=== PATIENT | female | born 1955 | race Caucasian/White ===

== ENCOUNTER → 2018-07-07 | Outpatient (CLI) | payer MEDICARE ==
--- NOTE | 2018-07-07 11:13 | US ---
EXAMINATION TYPE: US carotid duplex BILAT DATE OF EXAM: 07/07/2018 COMPARISON: NONE CLINICAL HISTORY: R07.89 Atypical chest pain,R55.9 Near syncope,. EXAM MEASUREMENTS: RIGHT: Peak Systolic Velocity (PSV) cm/sec ----- Right CCA: 81.6 ----- Right ICA: 93.0 ----- Right ECA: 72.8 ICA/CCA ratio: 1.1 RIGHT: End Diastole cm/sec ----- Right CCA: 22.2 ----- Right ICA: 39.1 ----- Right ECA: 10.9 LEFT: Peak Systolic Velocity (PSV) cm/sec ----- Left CCA: 102.0 ----- Left ICA: 80.0 ----- Left ECA: 76.7 ICA/CCA ratio: 0.8 LEFT: End Diastole cm/sec ----- Left CCA: 28.2 ----- Left ICA: 28.2 ----- Left ECA: 9.5 VERTEBRALS (direction of flow): Right Vertebral: Antegrade Left Vertebral: Antegrade Rhythm: Normal Grayscale images show no significant focal plaque at carotid bulb level bilaterally. Velocity measure ments and ratios remain within normal limits in visualized portion of both internal carotid arteries. IMPRESSION: No hemodynamically significant stenosis is seen in either internal carotid artery. Criteria for Assigning % of Stenosis / Diameter reduction (Estimation based on the indirect measurements of the internal carotid artery velocities (ICA PSV). 1. Normal (no stenosis)=ICA PSV < 125 cm/s: ratio < 2.0: ICA EDV<40 cm/s. 2. Less than 50% stenosis=ICA PSV < 125 cm/s: ratio < 2.0: ICA EDV<40 cm/s. 3. 50 to 69% stenosis=ICA PSV of 125 to 230 cm/s: ration 2.0 ? 4.0: ICA EDV 40-100 cm/s. 4. Greater than 70% stenosis to near occlusion= ICA PSV > 230 cm/s: ratio > 4.0: ICA EDV > 100 cm/s. 5. Near occlusion= ICA PSV velocities may be low or undetectable: variable ratio and ICA EDV. 6. Total occlusion=unable to detect flow.
--- NOTE | 2018-07-07 15:46 | BD ---
EXAMINATION TYPE: Axial Bone Density DATE OF EXAM: 07/07/2018 CLINICAL HISTORY: Postmenopausal female Height: 63 Weight: 227 FRAX RISK QUESTIONS: Alcohol (3 or more units per day): no Family History (Parent hip fracture): no Glucocorticoids (More than 3mos): no (Ex: prednisone, prednisolone, methylprednisolone, dexamethasone, and hydrocortisone). History of Fracture in Adulthood: yes, lower leg Secondary Osteoporosis: 1. Type 1 Diabetes: no 2. Hyperthyroidism: no 3. Menopause before 45: yes 4. Malnutrition: no 5. Chronic liver disease: no Rheumatoid Arthritis: no Current Tobacco Use: no RISK FACTORS HISTORY OF: Surgery to Spine: yes, lumbar fusion When: about 2012 Family History of Osteoporosis: no Active: yes Diet low in dairy products/other sources of calcium: no Postmenopausal woman: yes Take estrogen and/or progesterone medications: no Lost more than 2 inches in height since high school: no Frequent falls: no Poor Health: no Hyperparathyroidism: no Adrenal Insufficiency: no MEDICATIONS: Thyroid Medications: yes Which medication: Levothyroxine How Long: about 15 years Osteoporosis Medications: no Additional Medications: blood pressure med, calcium (stopped about 3 weeks ago) Additional History: EXAM MEASUREMENTS: Bone mineral densitometry was performed using the [employer] System. Bone mineral density NOT measured about the Lumbar spine due to previous fusion in that area Bone mineral density about the R hip (g/cm2): 0.880 Bone mineral density about the L hip (g/cm2): 0.809 T Score values are as follows: -----R Neck: -1.1 -----L Neck: -1.6 -----R Total: -0.9 -----L Total: -0.5 Bone mineral density not previously done at this facility; previously done elsewhere some years ago Bone mineral density about the L Wrist (g/cm2): 0.613 T Score values are as follows: -----Dist. R+U: -1.9 -----Prox. R+U: -0.8 -----Radius total: -1.0 Bone mineral density not previously done at this facility; previously done elsewhere some years ago IMPRESSION: Osteopenia (T Score between -2.5 and -1). There is slightly increased risk of fracture and the patient may be considered for treatment. Re-Screen 2-5 years. NOTE: T-SCORE=SD OF THE YOUNG ADULT MEAN.
--- NOTE | 2018-07-08 11:05 | EST ---
EXERCISE STRESS DATE OF SERVICE: 07/07/2018 AGE: 63 SEX: Female HT: 5'3" WT: 228 PROTOCOL: Servando STAGE: I DURATION OF EXERCISE: 3 minutes 20 seconds HEART RATE REST: 91 BLOOD PRESSURE REST: 126/84 MAXIMUM HEART RATE ACHIEVED: 135 MAXIMUM BLOOD PRESSURE: 166/71 85% MPHR: 132 100% MPHR: 153 METS: 4.2 INDICATIONS: Chest pain. Baseline EKG revealed a normal sinus rhythm without significant ST-T changes. Patient walked for 3 minutes 20 seconds, achieved a maximal heart rate of 135 beats per minute which is more than 85% of predicted maximal. She developed fatigue and shortness of breath, but did not have any angina or arrhythmia. EKG did not reveal any clear-cut ST- segment changes to indicate ischemia. Baseline EKG had minor ST abnormality to begin with and with exercise there was no significant changes. This is a negative stress test by EKG criteria with limited exercise capacity. The nuclear scan results which are more pertinent, will be reported by the radiologist. MMMEEK / BENN: [id number] /
== END | disposition home or self-care (01) ==
LOC: RADBDWWP 09:03
PROVIDERS: ATTEND Family Medicine
DX: R07.89 Other chest pain (principal); R55 Syncope and collapse; M85.80 Other specified disorders of bone density and structure, unspecified site; Z78.0 Asymptomatic menopausal state
CPT/HCPCS: 77080; 93017; 93351; 93880

== ENCOUNTER → 2019-12-31 | Outpatient (CLI) | payer MEDICARE | END | disposition home or self-care (01) | LOC: LABWHC1 08:11 | PROVIDERS: ATTEND Family Medicine | DX: R05 Cough (principal) ==

== ENCOUNTER 2020-02-07 15:44 | Emergency (ER) | payer MEDICARE ==
--- NOTE | 2020-02-07 16:46 | US ---
EXAMINATION TYPE: US venous doppler duplex LE RT DATE OF EXAM: 02/07/2020 4:26 PM COMPARISON: NONE CLINICAL HISTORY: fall. no fall, patient went to stand up and felt a pop, bruising and mild swelling in right calf, no h/o dvt SIDE PERFORMED: Right TECHNIQUE: The lower extremity deep venous system is examined utilizing real time linear array sonog rory with graded compression, doppler sonography and color-flow sonography. VESSELS IMAGED: External Iliac Vein (EIV) Common Femoral Vein Deep Femoral Vein Greater Saphenous Vein * Femoral Vein Popliteal Vein Small Saphenous Vein * Proximal Calf Veins (* superficial vessels) Right Leg: Negative for DVTsoft tissue scan at bruising on right calf produced a fluid collection seen near muscle, related to some sort of tear or strain IMPRESSION: No evidence of deep vein thrombosis in the right leg. Elongated fluid collection in the m edial calf consistent with hematoma that measures 6 mm in thickness and 5 cm in length.
--- NOTE | 2020-02-07 16:54 | ED ---
Extremity Problem HPI - General Chief complaint: Extremity Problem,Nontraumatic Stated complaint: rt calf pain/bruising Time Seen by Provider: 02/07/20 15:57 Source: patient Mode of arrival: ambulatory Limitations: no limitations - History of Present Illness Initial comments: 64-year-old feel presenting today for chief complaint of right calf pain. Sabrina ent states she has some tenderness mid calf she states she went up to go stretch and she felt a pop. Patient states that she noticed a lump at that time. Patient sates that since she has noticed bruising that seems to be slightly expanding and now heading towards her ankle. Patient that she is able to ambulate and weight-bear. Patient denies any falls or direct trauma. Patient denies any history of blood clots states she takes a baby aspirin daily. She does admit to Swelling. Patient denies any chest pain shortness of breath. Patient is no additional complaints she appears well arrival in no acute distress. Denies any bleeding diathesis - Related Data Home Medications Medication Instructions Recorded Confirmed Acetaminophen-Codeine 300-30mg 1 tab PO Q8H PRN 06/07/17 06/17/17 [Tylenol #3] Aspirin [Adult Low Dose Aspirin EC] 81 mg PO DAILY 06/07/17 06/07/17 Calcium Carbonate [Calcium] 1,200 mg PO DAILY 06/07/17 06/07/17 Cranberry Fruit Extract [Cranberry] 500 mg PO DAILY 06/07/17 06/07/17 Cyanocobalamin (Vitamin B-12) 1,500 mcg PO DAILY 06/07/17 06/07/17 [Vitamin B-12] Hydrochlorothiazide 12.5 mg PO DAILY 06/07/17 06/17/17 [hydroCHLOROthiazide] Levothyroxine Sodium 100 mcg PO DAILY 06/07/17 06/17/17 Losartan Potassium 50 mg PO DAILY 06/07/17 06/17/17 Magnesium Gluconate [Magonate] 500 mg PO DAILY 06/07/17 06/17/17 Multivit-Min/Iron/Folic/Lutein 1 tab PO DAILY 06/07/17 06/07/17 [Centrum Silver Women Tablet] Omeprazole 20 mg PO DAILY 06/07/17 06/17/17 Vitamin C/Biotin [Hair, Skin and 1 each PO DAILY 06/07/17 06/07/17 Nails] Allergies Allergy/AdvReac Type Severity Reaction Status Date / Time No Known Allergies Allergy Verified 02/07/20 15:53 Review of Systems ROS Statement: Those systems with pertinent positive or pertinent negative responses have been documented in the HPI. ROS Other: All systems not noted in ROS Statement are negative. Past Medical History Past Medical History: GERD/Reflux, Hypertension, Thyroid Disorder History of Any Multi-Drug Resistant Organisms: None Reported Past Surgical History: Section, Hysterectomy, Orthopedic Surgery, Tonsillectomy Additional Past Surgical History / Comment(s): x2, d&c, back surgery Past Anesthesia/Blood Transfusion Reactions: Postoperative Nausea & Vomiting (PONV) Past Psychological History: No Psychological Hx Reported Smoking Status: Never smoker Past Alcohol Use History: Rare Past Drug Use History: None Reported - Past Family History Mother Family Medical History: Cancer Additional Family Medical History / Comment(s): lymphoma Father Family Medical History: Cancer Additional Family Medical History / Comment(s): ling cancer General Exam - General Exam Comments Initial Comments: General: The patient is awake and alert, in no distress Eye: Pupils are equal, round and reactive to light, extra-ocular movements are intact. No nystagmus. There is normal conjunctiva bilaterally. No signs of icterus. Ears, nose, mouth and throat: There are moist mucous membranes and no oral lesions. Gastrointestinal: Soft, non-distended, non-tender abdomen without masses or organomegaly noted. There is no rebound or guarding present. Musculoskeletal: Rigth calf swelling, posterior brusiing, some tendenress. Normal ROM, no tenderness knee ankle and feett b/l. Strength 5/5. Sensation intact. Radial and DP pulses equal bilaterally 2+. Neurological: A&O x 3. CN II-XII intact grossly, There are no obvious motor or sensory deficits. Coordination appears grossly intact. Speech is normal. Skin: Skin is warm and dry and no rashes or lesions are noted. Psychiatric: Cooperative, appropriate mood & affect, normal judgment. Limitations: no limitations Course Vital Signs 02/07/20 02/07/20 15:53 17:09 Temperature 98.5 F 97.9 F Pulse Rate 87 68 Respiratory 16 18 Rate Blood Pressure 123/79 146/82 O2 Sat by Pulse 98 98 Oximetry Medical Decision Making - Medical Decision Making 64yo female presenting for calf pain, right. Bruising, felt pop. this occurred 2 night prior. US reveals hematoma suspect strain, no DVT. No thinners. Patient appear well nontoxic. NO distress or other complaints. Discussed rice instruction and importance of PCP and orthopedic f/u. Patient discharged appearing well. Disposition Clinical Impression: Strain of calf muscle, Hematoma Disposition: HOME SELF-CARE Condition: Good Instructions (If sedation given, give patient instructions): Muscle Strain (ED) Additional Instructions: Please use medication as discussed. Please follow-up with family doctor in the next 2 days.. Please return to emergency room if the symptoms increase or worsen or for any other concerns. Is patient prescribed a controlled substance at d/c from ED?: No Referrals: Fabricio Moreau DO [Primary Care Provider] - 1-2 days Haim Parikh DO [Doctor of Osteopathic Medicine] - 1-2 days Time of Disposition: 16:53
[2020-02-07 17:15] VITALS: BP 146/82; PULSE 68; RESP 18; TEMP 97.9
== END 2020-02-07 17:10 | disposition home or self-care (01) ==
LOC: EC 15:44
DX: S86.811A Strain of other muscle(s) and tendon(s) at lower leg level, right leg, initial encounter (principal); K21.9 Gastro-esophageal reflux disease without esophagitis; I10 Essential (primary) hypertension; E07.9 Disorder of thyroid, unspecified; Z79.890 Hormone replacement therapy; Z79.899 Other long term (current) drug therapy; X50.9XXA Other and unspecified overexertion or strenuous movements or postures, initial encounter; Y93.89 Activity, other specified
CPT/HCPCS: 99283

== ENCOUNTER → 2020-02-26 | Outpatient (CLI) | payer MEDICARE ==
[2020-02-26 19:57] LABS: Hemoglobin A1C 6.8 % (4.0-6.0)
== END | disposition home or self-care (01) ==
LOC: LABWHC1 10:45
PROVIDERS: ATTEND Family Medicine
DX: J20.9 Acute bronchitis, unspecified (principal); R06.02 Shortness of breath; R73.9 Hyperglycemia, unspecified
CPT/HCPCS: 36415; 83001; 83036

== ENCOUNTER → 2020-04-28 | Outpatient (CLI) | payer MEDICARE ==
--- NOTE | 2020-04-28 13:41 | XR ---
EXAMINATION TYPE: XR chest 2V DATE OF EXAM: 04/28/2020 COMPARISON: NONE HISTORY: Cough, asthma TECHNIQUE: Frontal and lateral views of the chest are obtained. FINDINGS: There is no focal air space opacity, pleural effusion, or pneumothorax seen. The cardiac silhouette size is within normal limits. Eventration of the right hemidiaphragm suspected. The osseou s structures are intact, there is thoracic spondylosis. IMPRESSION: No acute cardiopulmonary process.
== END | disposition home or self-care (01) ==
LOC: RADXRMAIN 13:09
PROVIDERS: ATTEND Family Medicine
DX: R05 Cough (principal); J45.909 Unspecified asthma, uncomplicated
CPT/HCPCS: 71046

== ENCOUNTER → 2020-06-07 | Outpatient (CLI) | payer MEDICARE ==
[2020-06-08 00:07] LABS: Immunoglobulin E 4.81 IU/mL (0.00-114.00); Red Top (Bentgrass) IgE <0.10 kU/L
[2020-06-08 00:08] LABS: Dermato. farinae IgE <0.10 kU/L
[2020-06-08 00:09] LABS: Cat Epith & Dander IgE <0.10 kU/L; Cockroach IgE <0.10 kU/L; Dog Dander IgE <0.10 kU/L
[2020-06-08 00:10] LABS: Alternaria alternata IgE <0.10 kU/L; Aspergillus fumagatus IgE <0.10 kU/L; Cladosporian herbarum IgE <0.10 kU/L
[2020-06-08 00:11] LABS: Birch IgE <0.10 kU/L; Elm IgE <0.10 kU/L; Maple (Box Elder) IgE <0.10 kU/L; Oak IgE <0.10 kU/L
[2020-06-08 00:12] LABS: Ragweed,Common IgE <0.10 kU/L
== END | disposition home or self-care (01) ==
LOC: LABWHC1 10:07
PROVIDERS: ATTEND Internal Medicine Critical Care Medicine
DX: R05 Cough (principal)
CPT/HCPCS: 36415; 82785; 86003

== ENCOUNTER 2020-08-24 16:25 | Emergency (ER) | payer MEDICARE ==
[2020-08-24 16:33] VITALS: BP 131/72; PULSE 92; RESP 18; TEMP 98.2
[2020-08-24] MEDS ORDERED: KETOROLAC 15 MG/ML 1 ML VIAL IM STA (16:49)
--- NOTE | 2020-08-24 16:58 | ED ---
General Adult HPI - General Chief complaint: Extremity Injury, Upper Stated complaint: Fall, R arm injury Time Seen by Provider: 08/24/20 16:34 Source: patient Mode of arrival: ambulatory Limitations: no limitations - History of Present Illness Initial comments: 65-year-old female presents to the emergency room for a chief complaint of right arm pain. Patient states this morning she slipped on ice and fell on the right arm. States it has been painful ever since however she was walking up the stairs and pulled herself using her right arm and felt a worsening pain. She is now not able to lift the right arm outwards. Patient denies weakness in the hand or tingling in the hand. States the pain radiates from the midhumerus to the right shoulder.Patient has no other complaints at this time including shortness of breath, chest pain, abdominal pain, nausea or vomiting, headache, or visual changes. - Related Data Home Medications Medication Instructions Recorded Confirmed Acetaminophen-Codeine 300-30mg 1 tab PO Q8H PRN 06/07/17 06/17/17 [Tylenol #3] Aspirin [Adult Low Dose Aspirin EC] 81 mg PO DAILY 06/07/17 06/07/17 Calcium Carbonate [Calcium] 1,200 mg PO DAILY 06/07/17 06/07/17 Cranberry Fruit Extract [Cranberry] 500 mg PO DAILY 06/07/17 06/07/17 Cyanocobalamin (Vitamin B-12) 1,500 mcg PO DAILY 06/07/17 06/07/17 [Vitamin B-12] Hydrochlorothiazide 12.5 mg PO DAILY 06/07/17 06/17/17 [hydroCHLOROthiazide] Levothyroxine Sodium 100 mcg PO DAILY 06/07/17 06/17/17 Losartan Potassium 50 mg PO DAILY 06/07/17 06/17/17 Magnesium Gluconate [Magonate] 500 mg PO DAILY 06/07/17 06/17/17 Multivit-Min/Iron/Folic/Lutein 1 tab PO DAILY 06/07/17 06/07/17 [Centrum Silver Women Tablet] Omeprazole 20 mg PO DAILY 06/07/17 06/17/17 Vitamin C/Biotin [Hair, Skin and 1 each PO DAILY 06/07/17 06/07/17 Nails] Allergies Allergy/AdvReac Type Severity Reaction Status Date / Time No Known Allergies Allergy Verified 08/24/20 16:29 Review of Systems ROS Statement: Those systems with pertinent positive or pertinent negative responses have been documented in the HPI. ROS Other: All systems not noted in ROS Statement are negative. Past Medical History Past Medical History: GERD/Reflux, Hypertension, Thyroid Disorder History of Any Multi-Drug Resistant Organisms: None Reported Past Surgical History: Section, Hysterectomy, Orthopedic Surgery, Tonsillectomy Additional Past Surgical History / Comment(s): x2, d&c, back surgery Past Anesthesia/Blood Transfusion Reactions: Postoperative Nausea & Vomiting (PONV) Past Psychological History: No Psychological Hx Reported Smoking Status: Never smoker Past Alcohol Use History: Rare Past Drug Use History: None Reported - Past Family History Mother Family Medical History: Cancer Additional Family Medical History / Comment(s): lymphoma Father Family Medical History: Cancer Additional Family Medical History / Comment(s): ling cancer General Exam - General Exam Comments Initial Comments: Right arm: Radial pulse 2+, capillary refill less than 2 seconds. Pyrometer Mechanic strength 5 out of 5. Patient able to make okay sign, abduction and adduction of fingers, and flex and extend the wrist. Patient able to flex the right shoulder to 90 however unable to Abduct the right shoulder past 30. Limitations: no limitations General appearance: alert, in no apparent distress Head exam: Present: atraumatic Eye exam: Present: normal appearance, PERRL, EOMI. Absent: scleral icterus ENT exam: Present: normal exam, mucous membranes moist Neck exam: Present: normal inspection, full ROM. Absent: tenderness Respiratory exam: Present: normal lung sounds bilaterally. Absent: respiratory distress, wheezes Cardiovascular Exam: Present: regular rate, normal rhythm, normal heart sounds GI/Abdominal exam: Present: soft, normal bowel sounds. Absent: distended, tenderness Neurological exam: Present: alert Course Vital Signs 08/24/20 16:29 Temperature 98.2 F Pulse Rate 92 Respiratory 18 Rate Blood Pressure 131/72 O2 Sat by Pulse 96 Oximetry Medical Decision Making - Medical Decision Making Vitals are stable. Neurovascular status intact in the right upper extremity. Range of motion is limited to pain especially with abduction of the shoulder. X-ray of the right shoulder and humerus are negative for acute osseous abnormality. At this time discussed Motrin and Tylenol for pain as well as trying range of motion exercises on the shoulder. Recommend she follow up with orthopedics as she may require MRI for soft tissue injury. She will return here for any worsening symptoms. Disposition Clinical Impression: Arm pain, right Disposition: HOME SELF-CARE Condition: Good Instructions (If sedation given, give patient instructions): Arm Pain (ED) Additional Instructions: please take motrin and tylenol for pain. please practice range of motion exercises. Elbow up with orthopedics by calling tomorrow for an appointment. Return to the emergency room for any worsening symptoms. Is patient prescribed a controlled substance at d/c from ED?: No Referrals: Fabricio Moreau DO [Primary Care Provider] - 1-2 days Jarod Meade DO [Doctor of Osteopathic Medicine] - 1-2 days Time of Disposition: 17:39
--- NOTE | 2020-08-24 17:17 | XR ---
Result: Clinical History: Pain status post fall on ice. Comparison: None available. Technique: 3 views of the right shoulder. 2 views of the right humerus. Findings: The bone mineralization is appropriate for age. No acute fracture or dislocation is seen. The acromioclavicular and glenohumeral joints demonstrate mild degenerative changes. Impression: No acute osseous abnormality of the right shoulder or humerus.
== END 2020-08-24 18:00 | disposition home or self-care (01) ==
LOC: EC 16:25
DX: M79.601 Pain in right arm (principal); I10 Essential (primary) hypertension; K21.9 Gastro-esophageal reflux disease without esophagitis; E07.9 Disorder of thyroid, unspecified; Z79.890 Hormone replacement therapy; Z79.899 Other long term (current) drug therapy; Z79.82 Long term (current) use of aspirin
CPT/HCPCS: 73030; 73060; 99283; 96372; J1885

== ENCOUNTER 2021-05-11 07:37 | Emergency (ER) | payer MEDICARE ==
[2021-05-11 07:43] VITALS: TEMP 98.7
--- NOTE | 2021-05-11 08:10 | ED ---
General Adult HPI - General Chief complaint: Recheck/Abnormal Lab/Rx Stated complaint: Possible covid Time Seen by Provider: 05/11/21 07:40 Source: patient, RN notes reviewed, old records reviewed Limitations: no limitations - History of Present Illness Initial comments: This is a 66-year-old female presents emergency Department stating that she's been exposed to COVID and she only had one of the vaccine shots. Patient states she really hasn't had any signs except for a little congestion which she states she always gets around this time of year because of ALLERGIES. Patient denies short of breath or difficulty breathing. Patient denies fever chills per patient is also taking small per patient denies chest pain palpitations. Patient denies any lightheadedness dizziness. Patient denies any abdominal pain. - Related Data Home Medications Medication Instructions Recorded Confirmed Acetaminophen-Codeine 300-30mg 1 tab PO Q8H PRN 06/07/17 08/24/20 [Tylenol #3] Aspirin [Adult Low Dose Aspirin EC] 81 mg PO DAILY 06/07/17 08/24/20 Calcium Carbonate [Calcium] 1,200 mg PO DAILY 06/07/17 08/24/20 Cranberry Fruit Extract [Cranberry] 500 mg PO DAILY 06/07/17 08/24/20 Cyanocobalamin (Vitamin B-12) 1,500 mcg PO DAILY 06/07/17 08/24/20 [Vitamin B-12] Hydrochlorothiazide 12.5 mg PO DAILY 06/07/17 08/24/20 [hydroCHLOROthiazide] Levothyroxine Sodium 100 mcg PO DAILY 06/07/17 08/24/20 Losartan Potassium 50 mg PO DAILY 06/07/17 08/24/20 Magnesium Gluconate [Magonate] 500 mg PO DAILY 06/07/17 08/24/20 Multivit-Min/Iron/Folic/Lutein 1 tab PO DAILY 06/07/17 08/24/20 [Centrum Silver Women Tablet] Omeprazole 20 mg PO DAILY 06/07/17 08/24/20 Vitamin C/Biotin [Hair, Skin and 1 each PO DAILY 06/07/17 08/24/20 Nails] Allergies Allergy/AdvReac Type Severity Reaction Status Date / Time No Known Allergies Allergy Verified 05/11/21 07:40 Review of Systems ROS Statement: Those systems with pertinent positive or pertinent negative responses have been documented in the HPI. ROS Other: All systems not noted in ROS Statement are negative. Past Medical History Past Medical History: GERD/Reflux, Hypertension, Thyroid Disorder History of Any Multi-Drug Resistant Organisms: None Reported Past Surgical History: Section, Hysterectomy, Orthopedic Surgery, Tonsillectomy Additional Past Surgical History / Comment(s): x2, d&c, back surgery Past Anesthesia/Blood Transfusion Reactions: Postoperative Nausea & Vomiting (PONV) Past Psychological History: No Psychological Hx Reported Smoking Status: Never smoker Past Alcohol Use History: Rare Past Drug Use History: None Reported - Past Family History Mother Family Medical History: Cancer Additional Family Medical History / Comment(s): lymphoma Father Family Medical History: Cancer Additional Family Medical History / Comment(s): ling cancer General Exam - General Exam Comments Initial Comments: GENERAL: Patient is well-developed and well-nourished. Patient is nontoxic and well-hy drated and is in no acute distress. ENT: Neck is soft and supple. No significant lymphadenopathy is noted. Oropharynx is clear. Moist mucous membranes. Neck has full range of motion without elici ting any pain. EYES: The sclera were anicteric and conjunctiva were pink and moist. Extraocular movements were intact and pupils were equal round and reactive to light. Eyelids were unremarkable. PULMONARY: Unlabored respirations. Good breath sounds bilaterally. No audible rales rhonchi or wheezing was noted. CARDIOVASCULAR: There is a regular rate and rhythm without any murmurs gallops or rubs. ABDOMEN: Soft and nontender with normal bowel sounds. SKIN: Skin is clear with no lesions or rashes and otherwise unremarkable. NEUROLOGIC: Patient is alert and oriented x3. Cranial nerves II through XII are grossly intact. Motor and sensory are also intact. Normal speech, volume and content. Symmetrical smile. MUSCULOSKELETAL: Normal extremities with adequate strength and full range of motion. No lower extremity swelling or edema. No calf tenderness. LYMPHATICS: No significant lymphadenopathy is noted PSYCHIATRIC: Normal psychiatric evaluation. Limitations: no limitations Course Vital Signs 05/11/21 07:40 Temperature 98.7 F Pulse Rate 91 Respiratory 20 Rate Blood Pressure 142/81 O2 Sat by Pulse 95 Oximetry Medical Decision Making - Medical Decision Making Patient was given monoclonal antibodies prophylactically. - Lab Data Lab Results 05/11/21 Range/Units 08:00 Coronavirus (PCR) Not Detected (Not Detectd) Disposition Clinical Impression: Exposure to COVID-19 virus Disposition: HOME SELF-CARE Condition: Good Instructions (If sedation given, give patient instructions): Coronavirus Disease 2019 (COVID-19) Is patient prescribed a controlled substance at d/c from ED?: No Referrals: Fabricio Moreau DO [Primary Care Provider] - 1-2 days Time of Disposition: 08:56
[2021-05-11] MEDS ORDERED: CASIRIVIMAB/IMDEVIMAB (EUA) 1,200 MG in SODIUM CHLORIDE 0.9% 100 ML IVPB ONE (08:30)
[2021-05-11] MEDS ORDERED: SODIUM CHLORIDE 0.9% 50 ML IVPB ONE (09:00)
[2021-05-11 10:32] VITALS: BP 120/100; PULSE 80; RESP 18
== END 2021-05-11 10:15 | disposition home or self-care (01) ==
LOC: EC 07:37
DX: Z20.822 Contact with and (suspected) exposure to COVID-19 (principal); E07.9 Disorder of thyroid, unspecified; I10 Essential (primary) hypertension; K21.9 Gastro-esophageal reflux disease without esophagitis; Z79.899 Other long term (current) drug therapy; Z79.890 Hormone replacement therapy
CPT/HCPCS: 99283; 96365; 87635; Q0243

== ENCOUNTER 2022-07-12 11:31 | Inpatient (IN) | payer MEDICARE ==
--- NOTE | 2022-07-12 12:29 | ED ---
General Adult HPI - General Chief complaint: Neuro Symptoms/Deficit Stated complaint: slurred speech Time Seen by Provider: 07/12/22 11:53 Source: patient, family Mode of arrival: ambulatory Limitations: no limitations - History of Present Illness Initial comments: Dictation was produced using [employer] dictation software. please excuse any grammatical, word or spelling errors. Chief Complaint: 67-year-old female presents to the emergency Department for slurred speech, gait changes and generalized weakness History of Present Illness: Is 67-year-old female she has history of diabetes, GERD, hypertension. For the last 2 days she has been having worsening weakness. She is with her fianc at the bedside states that she is walking slower and has slow and weak and speech. Patient denies any numbness and paresthesias to the arms or legs. Fianc at bedside denies any aphasia or confusion at home. No constitutional symptoms. No pain complaints. The ROS documented in this emergency department record has been reviewed and con firmed by me. Those systems with pertinent positive or negative responses have been documented in the HPI. All other systems are other negative and/or noncontributory. PHYSICAL EXAM: General Impression: Alert and oriented x3, not in acute distress HEENT: Normocephalic atraumatic, extra-ocular movements intact, pupils equal and reactive to light bilaterally, mucous membranes moist. Cardiovascular: Heart regular rate and rhythm Chest: Able to complete full sentences, no retractions, no tachypnea Abdomen: abdomen soft, non-tender, non-distended, no organomegaly Musculoskeletal: Pulses present and equal in all extremities, no peripheral edema Motor: no focal deficits noted Neurological: CN II-XII grossly intact, no focal motor or sensory deficits noted, NIH of 0 Skin: Intact with no visualized rashes Psych: Normal affect and mood ED course: 67-year-old male presents to the emergency department for alleged slurred speech, generalized weakness and slow gait. Vital signs upon arrival a re within acceptable limits. Neurologic exam is benign. She has nonfocal findings. Nursing notes and chart review was performed EKG interpreted by me: Ventricular rate 70, sinus rhythm,. 191, QRS 12, QTc 443. No AK prolongation, no QTC prolongation, no ST or T-wave changes noted. s. Overall, this EKG is unremarkable Laboratory evaluation obtained. CBC unremarkable. Metabolic panel shows epithelial 3.0. Calcium level was critically high at 15.8. Evidence of acute kidney injury. Urinalysis negative. 4 panel viral PCR is negative. Computed tomography scan of the brain is negative. Patient is critically high hypercalcemia. She states she takes calcium supplementation. At this point there is suspicion of other serious cause of hypercalcemia. Patient given fluids will be admitted with consultation to nephrology. Was pt. sent in by a medical professional or institution (, NOAH, GUITAR REPAIR TECHNICIAN, urgent care, hospital, or skilled nursing...) When possible be specific @ -No Did you speak to anyone other than the patient for history (EMS, parent, family, police, friend...)? What history was obtained from this source @ -Fianc at the bedside Did you review nursing and triage notes (agree or disagree)? Why? @ -I reviewed and agree with nursing and triage notes Were old charts reviewed (outside hosp., previous admission, EMS record, old EKG , old radiological studies, urgent care reports/EKG's, skilled nursing records)? Report findings @ -No old charts were reviewed Differential Diagnosis (chest pain, altered mental status, abdominal pain women, abdominal pain men, vaginal bleeding, weakness, fever, dyspnea, syncope, headache, dizziness, GI bleed, back pain, seizure, CVA, palpatations, mental health)? @ -Differential Weakness: Hypoglycemia, shock, sepsis, hyponatremia, anemia, infection, PA, ETOH, adverse medicine reaction, overdose, stroke, this is not meant to be an all-inclusive list. EKG interpreted by me (3pts min.). @ -As above X-rays interpreted by me (1pt min.). @ -None done CT interpreted by me (1pt min.). @ -As above U/S interpreted by me (1pt. min.). @ -None done What testing was considered but not performed or refused? (CT, X-rays, U/S, labs)? Why? @ -None What meds were considered but not given or refused? Why? @ -None Did you discuss the management of the patient with other professionals (professionals i.e. NOAH Douglas, GUITAR REPAIR TECHNICIAN, lab, RT, psych nurse, social media marketing analyst, warehouse material handler, teacher, national service officer, casework specialist)? Give summary @ - Sheet Was smoking cessation discussed for >3mins.? @ -No Was critical care preformed (if so, how long)? @ -No Were there social determinants of health that impacted care today? How? (Homelessness, low income, unemployed, alcoholism, drug addiction, transportation, low edu. Level, literacy, decrease access to med. care, halfway, rehab)? @ -No Was there de-escalation of care discussed even if they declined (Discuss DNR or withdrawal of care, Hospice)? DNR status @ -No What co-morbidities impacted this encounter? (DM, HTN, Smoking, COPD, CAD, Cancer, CVA, ARF, Chemo, Hep., AIDS, mental health diagnosis, sleep apnea, morbid obesity)? @ -None Was patient admitted / discharged? Hospital course, mention meds given and route, prescriptions, significant lab abnormalities, going to OR and other pertinent info. @ -See above Undiagnosed new problem with uncertain prognosis? @ -Hypercalcemia, no obvious source Drug Therapy requiring intensive monitoring for toxicity (Heparin, Nitro, Insulin, Cardizem)? @ -No Were any procedures done? @ -No Diagnosis/symptom? @ -Critical hypercalcemia Acute, or Chronic, or Acute on Chronic? @ -default Uncomplicated (without systemic symptoms) or Complicated (systemic symptoms)? @ -default Side effects of treatment? @ -No Exacerbation, Progression, or Severe Exacerbation? @ -No Poses a threat to life or bodily function? How? (Chest pain, [place], PA, pneumonia, PE, COPD, DKA, ARF, appy, cholecystitis, CVA, Diverticulitis, Homicidal, Suicidal, threat to staff... and all critical care pts) @ -Yes - Related Data Home Medications Medication Instructions Recorded Confirmed Aspirin [Adult Low Dose Aspirin EC] 81 mg PO DAILY 06/07/17 07/12/22 Cranberry Fruit Extract [Cranberry] 500 mg PO DAILY 06/07/17 07/12/22 Losartan Potassium 50 mg PO DAILY 06/07/17 07/12/22 Magnesium Gluconate [Magonate] 500 mg PO DAILY 06/07/17 07/12/22 Multivit-Min/Iron/Folic/Lutein 1 tab PO DAILY 06/07/17 07/12/22 [Centrum Silver Women Tablet] Omeprazole 20 mg PO DAILY 06/07/17 07/12/22 Vitamin C/Biotin [Hair, Skin and 1 tab PO DAILY 06/07/17 07/12/22 Nails] Albuterol Sulfate [Albuterol 1 puff PO Q4H PRN 07/12/22 07/12/22 Sulfate Hfa] Ascorbic Acid [Vitamin C] 500 mg PO DAILY 07/12/22 07/12/22 Biotin 5 mg PO DAILY 07/12/22 07/12/22 Calcium Carbonate/Vitamin D3 1 cap PO DAILY 07/12/22 07/12/22 [Calcium 600 mg-D3 10 Mcg (400 Iu)] Cider Vinegar [Apple Cider Vinegar] 300 mg PO DAILY 07/12/22 07/12/22 Fish Oil/Dha/Epa [Fish Oil 1,200 1 cap PO DAILY 07/12/22 07/12/22 mg Fish Oil] Garlic 1,000 mg PO DAILY 07/12/22 07/12/22 L.acidoph,Paracasei, B.lactis 1 cap PO DAILY 07/12/22 07/12/22 [Probiotic] Levothyroxine Sodium [Synthroid] 125 mcg PO DAILY 07/12/22 07/12/22 Vitamin B Complex 1 cap PO DAILY 07/12/22 07/12/22 Zinc Gluconate [Zinc] 50 mg PO DAILY 07/12/22 07/12/22 hydroCHLOROthiazide [Hydrodiuril] 25 mg PO DAILY 07/12/22 07/12/22 metFORMIN HCL [Glucophage] 500 mg PO W/SUPPER 07/12/22 07/12/22 Allergies Allergy/AdvReac Type Severity Reaction Status Date / Time No Known Allergies Allergy Verified 07/12/22 13:23 Review of Systems ROS Statement: Those systems with pertinent positive or pertinent negative responses have been documented in the HPI. ROS Other: All systems not noted in ROS Statement are negative. Past Medical History Past Medical History: CVA/TIA, GERD/Reflux, Hypertension, Thyroid Disorder History of Any Multi-Drug Resistant Organisms: None Reported Past Surgical History: Section, Hysterectomy, Orthopedic Surgery, Tonsillectomy Additional Past Surgical History / Comment(s): x2, d&c, back surgery Past Anesthesia/Blood Transfusion Reactions: Postoperative Nausea & Vomiting (PONV) Past Psychological History: No Psychological Hx Reported Smoking Status: Never smoker Past Alcohol Use History: Rare Past Drug Use History: None Reported - Past Family History Mother Family Medical History: Cancer Additional Family Medical History / Comment(s): lymphoma Father Family Medical History: Cancer Additional Family Medical History / Comment(s): ling cancer General Exam Limitations: no limitations Course Vital Signs 07/12/22 07/12/22 11:36 13:53 Temperature 97.9 F Pulse Rate 88 72 Respiratory 18 18 Rate Blood Pressure 107/70 121/62 O2 Sat by Pulse 97 100 Oximetry Medical Decision Making - Lab Data Result diagrams: 07/12/22 12:23 07/12/22 13:30 Lab Results 07/12/22 07/12/22 07/12/22 Range/Units 12: 12: 12: WBC 7.7 (3.8-10.6) k/uL RBC 5.11 (3.80-5.40) m/uL Hgb 14.0 (11.4-16.0) gm/dL Hct 41.4 (34.0-46.0) % MCV 81.0 (80.0-100.0) fL MCH 27.5 (25.0-35.0) pg MCHC 33.9 (31.0-37.0) g/dL RDW 13.6 (11.5-15.5) % Plt Count 184 (150-450) k/uL MPV 8.6 Neutrophils % 65 % Lymphocytes % 21 % Monocytes % 7 % Eosinophils % 4 % Basophils % 1 % Neutrophils # 5.0 (1.3-7.7) k/uL Lymphocytes # 1.6 (1.0-4.8) k/uL Monocytes # 0.6 (0-1.0) k/uL Eosinophils # 0.3 (0-0.7) k/uL Basophils # 0.1 (0-0.2) k/uL Sodium (137-145) mmol/L Potassium (3.5-5.1) mmol/L Chloride (98-107) mmol/L Carbon Dioxide (22-30) mmol/L Anion Gap mmol/L BUN (7-17) mg/dL Creatinine (0.52-1.04) mg/dL Est GFR (CKD-EPI)AfAm (>60 ml/min/1.73 sqM) Est GFR (CKD-EPI)NonAf (>60 ml/min/1.73 sqM) Glucose (74-99) mg/dL Plasma Lactic Acid [place] (0.7-2.0) mmol/L Calcium (8.4-10.2) mg/dL Magnesium (1.6-2.3) mg/dL Total Bilirubin (0.2-1.3) mg/dL AST (14-36) U/L ALT (4-34) U/L Alkaline Phosphatase (38-126) U/L Total Protein (6.3-8.2) g/dL Albumin (3.5-5.0) g/dL Urine Color Yellow Urine Appearance Clear (Clear) Urine pH 5.5 (5.0-8.0) Ur Specific [place] 1.013 (1.001-1.035) Urine Protein Negative (Negative) Urine Glucose (UA) Negative (Negative) Urine Ketones Negative (Negative) Urine Blood Negative (Negative) Urine Nitrite Negative (Negative) Urine Bilirubin Negative (Negative) Urine Urobilinogen <2.0 (<2.0) mg/dL Ur Leukocyte Esterase Trace H (Negative) Urine RBC 1 (0-5) /hpf Urine WBC 3 (0-5) /hpf Hyaline Casts 1 (0-2) /lpf Urine Mucus Rare H (None) /hpf Influenza Type A (PCR) Not Detected (Not Detectd) Influenza Type B (PCR) Not Detected (Not Detectd) RSV (PCR) Not Detected (Not Detectd) SARS-CoV-2 (PCR) Not Detected (Not Detectd) 07/12/22 07/12/22 Range/Units 13:30 13:30 WBC (3.8-10.6) k/uL RBC (3.80-5.40) m/uL Hgb (11.4-16.0) gm/dL Hct (34.0-46.0) % MCV (80.0-100.0) fL MCH (25.0-35.0) pg MCHC (31.0-37.0) g/dL RDW (11.5-15.5) % Plt Count (150-450) k/uL MPV Neutrophils % % Lymphocytes % % Monocytes % % Eosinophils % % Basophils % % Neutrophils # (1.3-7.7) k/uL Lymphocytes # (1.0-4.8) k/uL Monocytes # (0-1.0) k/uL Eosinophils # (0-0.7) k/uL Basophils # (0-0.2) k/uL Sodium 135 L (137-145) mmol/L Potassium 3.0 L (3.5-5.1) mmol/L Chloride 97 L (98-107) mmol/L Carbon Dioxide 32 H (22-30) mmol/L Anion Gap 6 mmol/L BUN 39 H (7-17) mg/dL Creatinine 1.35 H (0.52-1.04) mg/dL Est GFR (CKD-EPI)AfAm 46 (>60 ml/min/1.73 sqM) Est GFR (CKD-EPI)NonAf 40 (>60 ml/min/1.73 sqM) Glucose 101 H (74-99) mg/dL Plasma Lactic Acid [place] 1.1 (0.7-2.0) mmol/L Calcium 15.8 H* (8.4-10.2) mg/dL Magnesium 1.8 (1.6-2.3) mg/dL Total Bilirubin 0.8 (0.2-1.3) mg/dL AST 31 (14-36) U/L ALT 33 (4-34) U/L Alkaline Phosphatase 110 (38-126) U/L Total Protein 7.8 (6.3-8.2) g/dL Albumin 4.5 (3.5-5.0) g/dL Urine Color Urine Appearance (Clear) Urine pH (5.0-8.0) Ur Specific [place] (1.001-1.035) Urine Protein (Negative) Urine Glucose (UA) (Negative) Urine Ketones (Negative) Urine Blood (Negative) Urine Nitrite (Negative) Urine Bilirubin (Negative) Urine Urobilinogen (<2.0) mg/dL Ur Leukocyte Esterase (Negative) Urine RBC (0-5) /hpf Urine WBC (0-5) /hpf Hyaline Casts (0-2) /lpf Urine Mucus (None) /hpf Influenza Type A (PCR) (Not Detectd) Influenza Type B (PCR) (Not Detectd) RSV (PCR) (Not Detectd) SARS-CoV-2 (PCR) (Not Detectd) Disposition Clinical Impression: Hypercalcemia Disposition: ADMITTED IP TO THIS [facility] Condition: Fair Referrals: Yaya Moore MD [Primary Care Provider] - 1-2 days Decision Time: 14:28
[2022-07-12 12:43] LABS: Basophils # (A) 0.1 k/uL (0-0.2); Basophils % (A) 1 %; Eosinophils # (A) 0.3 k/uL (0-0.7); Eosinophils % (A) 4 %; HCT 41.4 % (34.0-46.0); Lymphocytes # (A) 1.6 k/uL (1.0-4.8); Lymphocytes % (A) 21 %; MCH 27.5 pg (25.0-35.0); MCHC 33.9 g/dL (31.0-37.0); Mean Platelet Volume 8.6; Monocytes # (A) 0.6 k/uL (0-1.0); Monocytes % (A) 7 %; Neutrophils % (A) 65 %; Platelet Count 184 k/uL (150-450); RBC 5.11 m/uL (3.80-5.40); RDW 13.6 % (11.5-15.5); WBC 7.7 k/uL (3.8-10.6)
--- NOTE | 2022-07-12 13:03 | CT ---
EXAMINATION TYPE: CT brain wo con DATE OF EXAM: 07/12/2022 COMPARISON: None HISTORY: Slurred speech for [address] DLP: 1099.4 mGycm Automated exposure control for dose reduction was used. FINDINGS: There is mild generalized degenerative change. No midline shift or mass effect. Partially empty sella turcica. Craniocervical junction maintained. Orbits are symmetric. Ventricular system is midline. Faint low-attenuation white matter is nonspecific but most typical of remote ischemia. No acute hemorrhage. Orbits are symmetric. Calvarium intact. IMPRESSION: DEGENERATIVE CHANGE IN THE FAINT NONSPECIFIC WHITE MATTER CHANGES MOST TYPICAL OF REMOTE ISCHEMIA. GI OMAR THE PATIENT'S SYMPTOMS CONSIDER MRI WITH DIFFUSION IMAGING TO EXCLUDE EARLY ISCHEMIA.
[2022-07-12 13:52] LABS: Appearance,Urine Clear (Clear); Bilirubin,Urine Negative (Negative); Blood,Urine Negative (Negative); Color,Urine Yellow; Glucose,Urine (UA) Negative (Negative); Hyaline Casts,Urine 1 /lpf (0-2); Ketones,Urine Negative (Negative); Leukocyte Esterase,Urine Trace (Negative); Mucus,Urine Rare /hpf; Nitrite,Urine Negative (Negative); PH, Urine 5.5 (5.0-8.0); Protein,Urine Negative (Negative); RBC,Urine 1 /hpf (0-5); Specific Gravity,Urine 1.013 (1.001-1.035); Urobilinogen,Urine <2.0 mg/dL (<2.0); WBC,Urine 3 /hpf (0-5)
[2022-07-12 13:55] LABS: Albumin 4.5 g/dL (3.5-5.0); Magnesium 1.8 mg/dL (1.6-2.3); Total Bilirubin 0.8 mg/dL (0.2-1.3); Total Protein 7.8 g/dL (6.3-8.2)
[2022-07-12 14:08] LABS: Calcium 15.8 mg/dL (8.4-10.2)
[2022-07-12] MEDS ORDERED: NALOXONE 0.4 MG/ML 1 ML VIAL IV PRN (14:28)
[2022-07-12] MEDS: SODIUM CHLORIDE 0.9% 1,000 ML IV SCH ×2 (14:45→21:44)
[2022-07-12 16:37] LABS: Glucose,Whole Blood 84 mg/dL (70-110)
[2022-07-12] MEDS ORDERED: POTASSIUM CHLORIDE ER 20 MEQ TAB.ER PO STA (17:28)
[2022-07-12] MEDS ORDERED: FUROSEMIDE 10 MG/ML 2 ML VIAL IV ONE (17:28)
[2022-07-12] MEDS ORDERED: CALCITONIN INJ 200 UNIT/ML (MDV) VIAL IM ONE (17:29)
[2022-07-12] MEDS ORDERED: ZOLEDRONIC ACID 4 MG in SODIUM CHLORIDE 0.9% 100 ML IV ONE (17:30)
[2022-07-12] MEDS ORDERED: DEXTROSE 50% SYRINGE 50 ML IVP PRN ×2 (18:25)
[2022-07-12] MEDS ORDERED: LORazepam 2 MG/ML INJ IV PRN (19:16)
[2022-07-12 20:21] LABS: Glucose,Whole Blood 138 mg/dL (70-110)
[2022-07-12] MEDS ORDERED: FAMOTIDINE 20 MG/2 ML VIAL IV SCH (21:00)
--- NOTE | 2022-07-12 21:07 | P.HPIM ---
History of Present Illness This is a pleasant 67 years old female with past medical history of CVA/TIA, Diabetes Mellitus, GERD/Reflux, Hypertension, hypothyroidism Patient was noticed by family including daughter that she's having slow movement with slow speech She has been having nauseated on and off Abdomen she is tender up to move and to wake she loses her balance. She lost 20 pounds since January, she has low appetite She denies chest pain or dyspnea. she Has chronic cough and sinus disease. No sinus symptoms now She denies abdominal pain or vomiting but she's been constipated which can be explained by hypercalcemia, urinary symptoms are absent, no dysuria or urgency, she denies headache or dizziness no weakness or numbness She is not a smoker, no alcohol, no illicit drugs She sees Cassie Moore office Vitals are stable Labs including CBC is unremarkable Sodium 135, potassium 3, creatinine elevated 1.3. Calcium is high at 15.8 which is significantly high. Liver enzymes not elevated. Urine analysis is negative. Viruses are undetected including influenza, carotid and RSV CT of the brain: Degenerative changes in the faint nonspecific white matter changes most typical of remote ischemia given the patient's symptoms consider MRI with diffusion image to exclude earlier ischemia EKG showing normal sinus rhythm at [address]-T changes Patient started on IV fluids status post one time IV Lasix Review of Systems Review of systems CONSTITUTIONAL: No fever, no malaise, no fatigue. HEENT: No recent visual problems or hearing problems. Denied any sore throat. CARDIOVASCULAR: No orthopnea, PND, no palpitations, no syncope. PULMONARY: No shortness of breath, no cough, no hemoptysis. GASTROINTESTINAL: No diarrhea, no nausea, no vomiting, no abdominal pain. Normoactive bowel sounds. NEUROLOGICAL: No headaches, no weakness, no numbness. HEMATOLOGICAL: Denies any bleeding or petechiae. GENITOURINARY: Denies any burning micturition, frequency, or urgency. MUSCULOSKELETAL/RHEUMATOLOGICAL: Denies any joint pain, swelling, or any muscle pain. ENDOCRINE: Denies any polyuria or polydipsia. Past Medical History Past Medical History: CVA/TIA, Diabetes Mellitus, GERD/Reflux, Hypertension, Thyroid Disorder History of Any Multi-Drug Resistant Organisms: None Reported Past Surgical History: Appendectomy, Section, Hysterectomy, Orthopedic Surgery, Tonsillectomy Additional Past Surgical History / Comment(s): x2, d&c, back surgery Past Anesthesia/Blood Transfusion Reactions: Postoperative Nausea & Vomiting (PONV) Smoking Status: Never smoker - Past Family History Mother Family Medical History: Cancer Additional Family Medical History / Comment(s): lymphoma Father Family Medical History: Cancer Additional Family Medical History / Comment(s): ling cancer Medications and Allergies Home Medications Medication Instructions Recorded Confirmed Type Aspirin [Adult Low Dose Aspirin EC] 81 mg PO DAILY 06/07/17 07/12/22 History Cranberry Fruit Extract [Cranberry] 500 mg PO DAILY 06/07/17 07/12/22 History Losartan Potassium 50 mg PO DAILY 06/07/17 07/12/22 History Magnesium Gluconate [Magonate] 500 mg PO DAILY 06/07/17 07/12/22 History Multivit-Min/Iron/Folic/Lutein 1 tab PO DAILY 06/07/17 07/12/22 History [Centrum Silver Women Tablet] Omeprazole 20 mg PO DAILY 06/07/17 07/12/22 History Vitamin C/Biotin [Hair, Skin and 1 tab PO DAILY 06/07/17 07/12/22 History Nails] Albuterol Sulfate [Albuterol 1 puff PO Q4H PRN 07/12/22 07/12/22 History Sulfate Hfa] Ascorbic Acid [Vitamin C] 500 mg PO DAILY 07/12/22 07/12/22 History Biotin 5 mg PO DAILY 07/12/22 07/12/22 History Calcium Carbonate/Vitamin D3 1 cap PO DAILY 07/12/22 07/12/22 History [Calcium 600 mg-D3 10 Mcg (400 Iu)] Cider Vinegar [Apple Cider Vinegar] 300 mg PO DAILY 07/12/22 07/12/22 History Fish Oil/Dha/Epa [Fish Oil 1,200 1 cap PO DAILY 07/12/22 07/12/22 History mg Fish Oil] Garlic 1,000 mg PO DAILY 07/12/22 07/12/22 History L.acidoph,Paracasei, B.lactis 1 cap PO DAILY 07/12/22 07/12/22 History [Probiotic] Levothyroxine Sodium [Synthroid] 125 mcg PO DAILY 07/12/22 07/12/22 History Vitamin B Complex 1 cap PO DAILY 07/12/22 07/12/22 History Zinc Gluconate [Zinc] 50 mg PO DAILY 07/12/22 07/12/22 History hydroCHLOROthiazide [Hydrodiuril] 25 mg PO DAILY 07/12/22 07/12/22 History metFORMIN HCL [Glucophage] 500 mg PO W/SUPPER 07/12/22 07/12/22 History Allergies Allergy/AdvReac Type Severity Reaction Status Date / Time No Known Allergies Allergy Verified 07/12/22 13:23 Physical Exam Vitals: Vital Signs Temp Pulse Pulse Resp BP Pulse Ox 07/12/22 19:34 97.6 F 96 14 97 07/12/22 13:53 72 18 121/62 100 07/12/22 11:36 97.9 F 88 18 107/70 97 Intake and Output 07/12/22 07/12/22 07/12/22 06:59 14:59 22:59 Other: # Voids 1 Weight 86.183 kg 86.183 kg GENERAL: The patient is alert and oriented x3, not in any acute distress. Well developed, well nourished. HEENT: Pupils are round and equally reacting to light. EOMI. No scleral icterus. No conjunctival pallor. Normocephalic, atraumatic. No pharyngeal erythema. No thyromegaly. CARDIOVASCULAR: S1 and S2 present. No murmurs, rubs, or gallops. PULMONARY: Chest is clear to auscultation, no wheezing or crackles. ABDOMEN: Soft, nontender, nondistended, normoactive bowel sounds. No palpable organomegaly. MUSCULOSKELETAL: No joint swelling or deformity. EXTREMITIES: No cyanosis, clubbing, or pedal edema. NEUROLOGICAL: Gross neurological examination did not reveal any focal deficits. SKIN: No rashes. no petechiae. Results CBC & Chem 7: 07/12/22 12:23 07/12/22 13:30 Labs: Abnormal Lab Results - Last 24 Hours (Table) 07/12/22 07/12/22 07/12/22 Range/Units 12: 13:30 20:19 Sodium 135 L (137-145) mmol/L Potassium 3.0 L (3.5-5.1) mmol/L Chloride 97 L (98-107) mmol/L Carbon Dioxide 32 H (22-30) mmol/L BUN 39 H (7-17) mg/dL Creatinine 1.35 H (0.52-1.04) mg/dL Glucose 101 H (74-99) mg/dL POC Glucose (mg/dL) 138 H (70-110) mg/dL Calcium 15.8 H* (8.4-10.2) mg/dL Ur Leukocyte Esterase Trace H (Negative) Urine Mucus Rare H (None) /hpf Thrombosis Risk Factor Assmnt - Choose All That Apply Any of the Below Risk Factors Present?: Yes Each Factor Represents 1 point: Obesity (BMI >25) Other Risk Factors: Yes Each Risk Factor Represents 2 Points: Age 61-74 years Other congenital or acquired thrombophilia - If yes, enter type in comment: No Thrombosis Risk Factor Assessment Total Risk Factor Score: 3 Thrombosis Risk Factor Assessment Level: Moderate Risk Assessment and Plan Assessment: Hypercalcemia Abnormal CT of the brain with white matter changes most typical of remote ischemia given the patient's symptoms consider MRI with diffusion image to exclude earlier ischemia Diabetes mellitus History of GERD Hypertension Hypothyroidism History of CVA/TIA Obesity with BMI of 33.7 Plan: Continue with IV fluids Monitor creatinine Nephrology consult Check chest x-ray Hold hydrochlorothiazide which might contribute to hypercalcemia Check MRI of the brain Check hemoglobin A1c and B12 Labs and medication were reviewed.. Continue same treatment. Continue with symptomatic treatment. Resume home medication. Monitor lytes and vitals. DVT and GI prophylaxis. Further recommendations as per clinical course of the patient DVT prophylaxis: Subcutaneous heparin GI Prophylaxis: Pepcid PT/OT: Pending Prognosis is guarded
[2022-07-12] MEDS: INSULIN ASPART (NovoLOG) 100 UNIT/ML VIAL SQ SCH (21:37)
[2022-07-12] MEDS: HEPARIN SODIUM,PORCINE/PF 5,000 UNIT/0.5 ML SYRINGE SQ SCH (21:43)
[2022-07-13 05:56] LABS: Glucose,Whole Blood 117 mg/dL (70-110)
[2022-07-13] MEDS: INSULIN ASPART (NovoLOG) 100 UNIT/ML VIAL SQ SCH ×4 (06:59→20:49)
[2022-07-13] MEDS: SODIUM CHLORIDE 0.9% 1,000 ML IV SCH ×5 (07:00→18:25)
[2022-07-13] MEDS: LEVOTHYROXINE 125 MCG TAB PO SCH (07:00)
[2022-07-13] MEDS: PANTOPRAZOLE 40 MG TABLET PO SCH (08:31)
[2022-07-13] MEDS: ASPIRIN 81 MG PO SCH (08:31)
[2022-07-13] MEDS: ASCORBIC ACID 500 MG TAB PO SCH (08:31)
[2022-07-13] MEDS: HEPARIN SODIUM,PORCINE/PF 5,000 UNIT/0.5 ML SYRINGE SQ SCH ×2 (08:31→20:31)
[2022-07-13] MEDS ORDERED: NON FORMULARY DRUG (Vitamin B Complex [Vitamin B Complex] 1 EACH Capsule) PO SCH (09:00)
--- NOTE | 2022-07-13 09:12 | XR ---
EXAMINATION TYPE: XR chest 2V DATE OF EXAM: 07/13/2022 6:16 AM COMPARISON: Chest radiographs from 04/28/2020. TECHNIQUE: XR chest 2V Frontal and lateral views of the chest. CLINICAL INDICATION:Female, 67 years old with history of fatigue hypercalcemia; FINDINGS: Lungs/Pleura: There is no evidence of pleural effusion, focal consolidation, or pneumothorax. Pulmonary vascularity: Unremarkable. Heart/mediastinum: Cardiomediastinal silhouette is unremarkable. Musculoskeletal: Multiple level degenerative disc disease changes seen throughout the spine. IMPRESSION: No acute cardiopulmonary disease/process. No significant change from prior examination.
--- NOTE | 2022-07-13 11:03 | P.NPCON ---
History of Present Illness - Reason for Consult acute renal failure - History of Present Illness Reason for consultation: Acute kidney injury and hypercalcemia History of present illness: Patient is a 67-year-old female seen in consultation for acute kidney injury and hypercalcemia. Patient denies personal or family history of kidney disease. Patient baseline creatinine from August and December 2021 is 0.7. This admission creatinine was 1.35. Labs from today are pending. Patient was noted to be hy percalcemic with a calcium level of 15.8 on admission. She is currently maintained on normal saline at 200 mL an hour. Patient also received a dose of intramuscular calcitonin, IV zoledronic acid, IV Lasix yesterday. Patient states she was taking a calcium and vitamin D supplement on a daily basis. She was also on hydrochlorothiazide. She denies excessive dairy intake. She denies personal history of malignancy. Admits to nausea but no vomiting or diarrhea. Denies use of nonsteroidals. No chest pain or shortness of breath. No edema. Vital signs are stable. General: Awake. No acute distress. HEENT: Head exam is unremarkable. LUNGS: Breath sounds decreased. HEART: Rate and Rhythm are regular. ABDOMEN: Soft, no distention. EXTREMITITES: No edema. Past Medical History Past Medical History: CVA/TIA, Diabetes Mellitus, GERD/Reflux, Hypertension, Thyroid Disorder History of Any Multi-Drug Resistant Organisms: None Reported Past Surgical History: Appendectomy, Section, Hysterectomy, Orthopedic Surgery, Tonsillectomy Additional Past Surgical History / Comment(s): x2, d&c, back surgery Past Anesthesia/Blood Transfusion Reactions: Postoperative Nausea & Vomiting (PONV) Smoking Status: Never smoker - Past Family History Mother Family Medical History: Cancer Additional Family Medical History / Comment(s): lymphoma Father Family Medical History: Cancer Additional Family Medical History / Comment(s): ling cancer Medications and Allergies Home Medications Medication Instructions Recorded Confirmed Type Aspirin [Adult Low Dose Aspirin EC] 81 mg PO DAILY 06/07/17 07/12/22 History Cranberry Fruit Extract [Cranberry] 500 mg PO DAILY 06/07/17 07/12/22 History Losartan Potassium 50 mg PO DAILY 06/07/17 07/12/22 History Magnesium Gluconate [Magonate] 500 mg PO DAILY 06/07/17 07/12/22 History Multivit-Min/Iron/Folic/Lutein 1 tab PO DAILY 06/07/17 07/12/22 History [Centrum Silver Women Tablet] Omeprazole 20 mg PO DAILY 06/07/17 07/12/22 History Vitamin C/Biotin [Hair, Skin and 1 tab PO DAILY 06/07/17 07/12/22 History Nails] Albuterol Sulfate [Albuterol 1 puff PO Q4H PRN 07/12/22 07/12/22 History Sulfate Hfa] Ascorbic Acid [Vitamin C] 500 mg PO DAILY 07/12/22 07/12/22 History Biotin 5 mg PO DAILY 07/12/22 07/12/22 History Calcium Carbonate/Vitamin D3 1 cap PO DAILY 07/12/22 07/12/22 History [Calcium 600 mg-D3 10 Mcg (400 Iu)] Cider Vinegar [Apple Cider Vinegar] 300 mg PO DAILY 07/12/22 07/12/22 History Fish Oil/Dha/Epa [Fish Oil 1,200 1 cap PO DAILY 07/12/22 07/12/22 History mg Fish Oil] Garlic 1,000 mg PO DAILY 07/12/22 07/12/22 History L.acidoph,Paracasei, B.lactis 1 cap PO DAILY 07/12/22 07/12/22 History [Probiotic] Levothyroxine Sodium [Synthroid] 125 mcg PO DAILY 07/12/22 07/12/22 History Vitamin B Complex 1 cap PO DAILY 07/12/22 07/12/22 History Zinc Gluconate [Zinc] 50 mg PO DAILY 07/12/22 07/12/22 History hydroCHLOROthiazide [Hydrodiuril] 25 mg PO DAILY 07/12/22 07/12/22 History metFORMIN HCL [Glucophage] 500 mg PO W/SUPPER 07/12/22 07/12/22 History Allergies Allergy/AdvReac Type Severity Reaction Status Date / Time No Known Allergies Allergy Verified 07/12/22 13:23 Physical Exam Vitals: Vital Signs Temp Pulse Pulse Resp BP BP Pulse Ox 07/13/22 07:22 98.0 F 75 17 118/62 99 07/13/22 01:05 97.7 F 75 16 91/47 97 07/12/22 21:43 75 16 07/12/22 19:34 97.6 F 96 14 97 07/12/22 13:53 72 18 121/62 100 07/12/22 11:36 97.9 F 88 18 107/70 97 Intake and Output 07/12/22 07/13/22 07/13/22 22:59 06:59 14:59 Output Total 0 Balance 0 Output: Urine 0 Other: Voiding Method Toilet # Voids 1 Weight 86.183 kg Results - Lab Results Most recent lab results Calcium 15.8 mg/dL (8.4-10.2) H* 07/12/22 13:30 Magnesium 1.8 mg/dL (1.6-2.3) 07/12/22 13:30 07/12/22 12:23 07/12/22 13:30 Assessment and Plan Plan: Assessment: 1. Acute kidney injury mostly prerenal secondary to hypercalcmia-induced diuresis creatinine 1.35 on admission. Baseline creatinine near 0.7 in December 2021. 2. Hypokalemia secondary to diuretics. Magnesium normal. Replaced. 3. Benign hypertension. Currently controlled. 4. Hypercalcemia secondary to calcium and vitamin D supplementation and further exacerbated by use of thiazide diuretics. Plan: Maintain normal saline at 200 mL an hour. Status post IM calcitonin, IV Lasix and IV zoledronic acid given 07/12/2022. Check further workup for hypercalcemia. Hold calcium and vitamin D supplementation. Hold thiazide diuretics. Morning labs pending. Thank you for the consultation. I will continue to follow the patient with you during her hospital stay.
[2022-07-13 11:31] LABS: Glucose,Whole Blood 110 mg/dL (70-110)
[2022-07-13 12:28] LABS: Magnesium 1.5 mg/dL (1.5-2.4)
[2022-07-13 12:34] LABS: African American GFR (CKD) 51.8 (60.0-200.0); Albumin 4.5 g/dL (3.8-4.9); Albumin/Globulin Ratio 1.55 (1.60-3.17); Anion Gap 13.5 mmol/L (10.00-18.00); BUN/Creat Ratio 23.5 Ratio (12.00-20.00); Blood Urea Nitrogen 28.9 mg/dL (9.0-27.0); Calcium 13.3 mg/dL (8.7-10.3); Carbon Dioxide 24.8 mmol/L (20.0-27.5); Globulin 2.9 g/dL (1.6-3.3); Non-African American GFR(CKD) 44.7 (60.0-200.0); Potassium 3.3 mmol/L (3.5-5.5); Total Bilirubin 0.4 mg/dL (0.30-1.20); Total Protein 7.3 g/dL (6.2-8.2)
--- NOTE | 2022-07-13 12:45 | P.PN ---
Subjective This is a pleasant 67 years old female with past medical history of CVA/TIA, Diabetes Mellitus, GERD/Reflux, Hypertension, hypothyroidism Patient was noticed by family including daughter that she's having slow movement with slow speech She has been having nauseated on and off Abdomen she is tender up to move and to wake she loses her balance. She lost 20 pounds since January, she has low appetite She denies chest pain or dyspnea. she Has chronic cough and sinus disease. No sinus symptoms now She denies abdominal pain or vomiting but she's been constipated which can be explained by hypercalcemia, urinary symptoms are absent, no dysuria or urgency, she denies headache or dizziness no weakness or numbness She is not a smoker, no alcohol, no illicit drugs She sees [facility] office Vitals are stable Labs including CBC is unremarkable Sodium 135, potassium 3, creatinine elevated 1.3. Calcium is high at 15.8 which is significantly high. Liver enzymes not elevated. Urine analysis is negative. Viruses are undetected including influenza, carotid and RSV CT of the brain: Degenerative changes in the faint nonspecific white matter ch anges most typical of remote ischemia given the patient's symptoms consider MRI with diffusion image to exclude earlier ischemia EKG showing normal sinus rhythm at [address]-T changes Patient started on IV fluids status post one time IV Lasix 07/13/2022 Patient clinically she is somewhat better although overall much different than yesterday. She still constipated She's on IV fluids and she is going to the bathroom every 1-2 hours, she says she has no problem walking, no bolus problem today. She has this bolus problem prior to hospitalization but now resolved, no headache or dizziness or weakness or numbness. chest x-ray: No acute process Calcium and vasa are stopped and patient informed and she agrees She is status post IV Lasix and zelondronic 1 Nephrology team on the case Hypercalcemia workup is ordered and pending Calcium improving down to 13.3 and creatinine down to 1. Objective - Vital Signs Vital signs: Vital Signs Temp 98.0 F 07/13/22 07:22 Pulse 75 07/13/22 07:22 Resp 17 07/13/22 07:22 BP 118/62 07/13/22 07:22 Pulse Ox 99 07/13/22 07:22 FiO2 Intake & Output 07/12/22 07/13/2223 18:59 06:59 18:59 Output Total 0 Balance 0 Weight 86.183 kg Output: Urine 0 Other: Voiding Method Toilet # Voids 1 - Exam GENERAL: The patient is alert and oriented x3, not in any acute distress. Well developed, well nourished. HEENT: Pupils are round and equally reacting to light. EOMI. No scleral icterus. No conjunctival pallor. Normocephalic, atraumatic. No pharyngeal erythema. No thyromegaly. CARDIOVASCULAR: S1 and S2 present. No murmurs, rubs, or gallops. PULMONARY: Chest is clear to auscultation, no wheezing or crackles. ABDOMEN: Soft, nontender, nondistended, normoactive bowel sounds. No palpable organomegaly. MUSCULOSKELETAL: No joint swelling or deformity. EXTREMITIES: No cyanosis, clubbing, or pedal edema. NEUROLOGICAL: Gross neurological examination did not reveal any focal deficits. SKIN: No rashes. no petechiae. - Labs CBC & Chem 7: 07/12/22 12:23 07/13/22 06:22 Labs: Abnormal Lab Results - Last 24 Hours (Table) 07/12/22 07/12/22 07/12/22 Range/Units 12:23 13:30 20:19 Sodium 135 L (137-145) mmol/L Potassium 3.0 L (3.5-5.1) mmol/L Chloride 97 L (98-107) mmol/L Carbon Dioxide 32 H (22-30) mmol/L BUN 39 H (7-17) mg/dL Creatinine 1.35 H (0.52-1.04) mg/dL Est GFR (CKD-EPI)AfAm (60.0-200.0) Est GFR (CKD-EPI)NonAf (60.0-200.0) BUN/Creatinine Ratio (12.00-20.00) Ratio Glucose 101 H (74-99) mg/dL POC Glucose (mg/dL) 138 H (70-110) mg/dL Hemoglobin A1c (0.0-6.0) % Calcium 15.8 H* (8.4-10.2) mg/dL Albumin/Globulin Ratio (1.60-3.17) g/dL Vitamin B12 (200.0-944.0) pg/mL Ur Leukocyte Esterase Trace H (Negative) Urine Mucus Rare H (None) /hpf 07/13/22 07/13/22 07/13/22 Range/Units 05:55 06:22 06:22 Sodium (137-145) mmol/L Potassium 3.3 L (3.5-5.1) mmol/L Chloride (98-107) mmol/L Carbon Dioxide (22-30) mmol/L BUN 28.9 H (7-17) mg/dL Creatinine (0.52-1.04) mg/dL Est GFR (CKD-EPI)AfAm 51.8 L (60.0-200.0) Est GFR (CKD-EPI)NonAf 44.7 L (60.0-200.0) BUN/Creatinine Ratio 23.50 H (12.00-20.00) Ratio Glucose 112 H (74-99) mg/dL POC Glucose (mg/dL) 117 H (70-110) mg/dL Hemoglobin A1c 6.2 H (0.0-6.0) % Calcium 13.3 H* (8.4-10.2) mg/dL Albumin/Globulin Ratio 1.55 L (1.60-3.17) g/dL Vitamin B12 1419.0 H (200.0-944.0) pg/mL Ur Leukocyte Esterase (Negative) Urine Mucus (None) /hpf Assessment and Plan Assessment: Hypercalcemia Abnormal CT of the brain with white matter changes most typical of remote ischemia given the patient's symptoms consider MRI with diffusion image to exclude earlier ischemia Diabetes mellitus History of GERD Hypertension Hypothyroidism History of CVA/TIA Obesity with BMI of 33.7 Plan: Continue with IV fluids Monitor creatinine Nephrology consult Check chest x-ray Hold hydrochlorothiazide which might contribute to hypercalcemia Check MRI of the brain Check hemoglobin A1c and B12 Labs and medication were reviewed.. Continue same treatment. Continue with symptomatic treatment. Resume home medication. Monitor lytes and vitals. DVT and GI prophylaxis. Further recommendations as per clinical course of the patient DVT prophylaxis: Subcutaneous heparin GI Prophylaxis: Pepcid PT/OT: Pending Prognosis is guarded
[2022-07-13] MEDS ORDERED: POTASSIUM CHLORIDE ER 20 MEQ TAB.ER PO STA (13:35)
[2022-07-13] MEDS ORDERED: FUROSEMIDE 10 MG/ML 2 ML VIAL IV ONE (13:35)
--- NOTE | 2022-07-13 14:14 | MR ---
EXAMINATION TYPE: MR brain wo con DATE OF EXAM: 07/13/2022 1:55 PM COMPARISON: CT brain 07/12/2022. CLINICAL INDICATION:Female, 67 years old with history of abd CT, poss ischemia; PHH, TECHNIQUE: Multi planar, multi sequence imaging of the brain was performed. No gadolinium given. FINDINGS: The miller-white junctions, ventricular system, and cisterns appear unremarkable. Multiple foci of hig h T2/FLAIR signal intensity are seen within the subcortical white matter bilaterally. Largest is with in the right frontal lobe measuring up to 7 mm.. Midline structures show no abnormality. Diffusion-we ighted imaging shows no evidence of restricted diffusion. The susceptibility weighted images do not r eveal any evidence for micro-hemorrhage. The bone marrow signal is within normal limits. The paranasal sinuses and globes are unremarkable. Pa rtial empty sella turcica. IMPRESSION: 1. No evidence of acute/subacute infarct. 2. Nonspecific multiple foci of high T2/FLAIR signal intensity within the subcortical white matter bi laterally. This can be seen with chronic microangiopathy versus demyelination versus chronic migraine s versus other etiologies.
[2022-07-13] MEDS ORDERED: ACETAMINOPHEN TAB 325 MG TAB PO PRN (15:16)
[2022-07-13 16:49] LABS: Glucose,Whole Blood 105 mg/dL (70-110)
[2022-07-13 18:44] LABS: Protein, Total 6.8 g/dL (6.2-8.2)
[2022-07-13 20:32] LABS: Glucose,Whole Blood 91 mg/dL (70-110)
--- NOTE | 2022-07-13 22:53 | P.CNNES ---
History of Present Illness Consult date: 07/13/22 Requesting physician: Robert Ervin Reason for Consult: abnormal MRI with B/L mulotiple brain foci History of Present Illness: Patient is a 67-year-old female who came to the hospital yesterday at 11:31 AM because of slurred speech, shuffling, brain fog. His symptoms started on 07/10/2022(2 days prior to arrival). She was feeling weak all over. Her symptoms persisted on Saturday. Yesterday on she called her primary physician, who recommended her to go to the ER. Patient denies any focal numbness, tingling or worsening of her baseline facial droop(related to her previous Reynolds's palsy). Patient complains of being very tired lately. She complains of generalized weakness, but no focal weakness. Vital signs on arrival blood pressure 107/70, pulse rate 88 temperature 97.9. Blood test shows normal CBC, sodium 135 potassium 3.0, BUN 39, creatinine 1.35. Calcium was highly elevated 15.8. Hepatic panel is normal. UA negative. Influenza screen, RSV and Graves virus PCR negative. Patient's vitamin B-12 is 1419, vitamin D 23.9, PTH intact 12.3 which is low. Patient's hemoglobin A1c 6.2, whereas lipid panel from 01/03/2022 was 203, LDL 126, HDL 42 and triglycerides 170. TSH is normal. Patient had a negative factor V Leiden on 02/26/2020. Patient was started on hydration. Her repeat calcium is 13.3. CT head revealed degenerative change in the faint nonspecific white matter changes most typical of remote ischemia. Given the patient's symptoms, consider MRI with diffusion imaging to exclude early ischemia. I personally reviewed CT head, and has slight small vessel disease. No evidence of an acute infarct. Patient subsequently underwent MRI of the brain, which revealed no evidence of acute/subacute infarct. Nonspecific multiple foci of high T2/FLAIR signal intensity within the subcortical white matter bilaterally. This can be seen with chronic microangiopathy versus demyelination versus chronic migraines versus other etiologies. I personally reviewed MRI, I agree with the findings. No acute ischemia. Small vessel disease. Chest x-ray revealed no acute cardio pulmonary process. EKG showed sinus rhythm. Patient states that she is feeling better. Still feels tired, but is more coherent. Patient does take supplementation of calcium with vitamin D every day. Patient has history of diabetes since December 2021. Her A1c has been elevated for last 1 year. She has hypertension, hyperlipidemia. 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 The left facial droopiness gets worse if patient is under stress. Patient has never smoked, seldom drinks alcohol. Patient does take aspirin 81 mg every day. Review of Systems Constitutional: Denies chills, Denies fever Eyes: denies blurred vision, denies pain Ears, nose, mouth and throat: Denies headache, Denies sore throat Cardiovascular: Denies chest pain, Denies shortness of breath Respiratory: Denies cough Gastrointestinal: Denies abdominal pain, Denies diarrhea, Denies nausea, Denies vomiting Genitourinary: Denies dysuria, Denies hematuria Musculoskeletal: Reports myalgias, Denies limitation of motion Neurological: Reports as per HPI Psychiatric: Denies anxiety, Denies depression Endocrine: Reports fatigue, Denies weight change Hematologic/Lymphatic: Denies easy bruising Past Medical History Past Medical History: CVA/TIA, Diabetes Mellitus, GERD/Reflux, Hypertension, Thyroid Disorder History of Any Multi-Drug Resistant Organisms: None Reported Past Surgical History: Appendectomy, Section, Hysterectomy, Orthopedic Surgery, Tonsillectomy Additional Past Surgical History / Comment(s): x2, d&c, back surgery Past Anesthesia/Blood Transfusion Reactions: Postoperative Nausea & Vomiting (PONV) Smoking Status: Never smoker - Past Family History Mother Family Medical History: Cancer Additional Family Medical History / Comment(s): lymphoma Father Family Medical History: Cancer Additional Family Medical History / Comment(s): ling cancer Medications and Allergies Home Medications Medication Instructions Recorded Confirmed Type Aspirin [Adult Low Dose Aspirin EC] 81 mg PO DAILY 06/07/17 07/12/22 History Cranberry Fruit Extract [Cranberry] 500 mg PO DAILY 06/07/17 07/12/22 History Losartan Potassium 50 mg PO DAILY 06/07/17 07/12/22 History Magnesium Gluconate [Magonate] 500 mg PO DAILY 06/07/17 07/12/22 History Multivit-Min/Iron/Folic/Lutein 1 tab PO DAILY 06/07/17 07/12/22 History [Centrum Silver Women Tablet] Omeprazole 20 mg PO DAILY 06/07/17 07/12/22 History Vitamin C/Biotin [Hair, Skin and 1 tab PO DAILY 06/07/17 07/12/22 History Nails] Albuterol Sulfate [Albuterol 1 puff PO Q4H PRN 07/12/22 07/12/22 History Sulfate Hfa] Ascorbic Acid [Vitamin C] 500 mg PO DAILY 07/12/22 07/12/22 History Biotin 5 mg PO DAILY 07/12/22 07/12/22 History Calcium Carbonate/Vitamin D3 1 cap PO DAILY 07/12/22 07/12/22 History [Calcium 600 mg-D3 10 Mcg (400 Iu)] Cider Vinegar [Apple Cider Vinegar] 300 mg PO DAILY 07/12/22 07/12/22 History Fish Oil/Dha/Epa [Fish Oil 1,200 1 cap PO DAILY 07/12/22 07/12/22 History mg Fish Oil] Garlic 1,000 mg PO DAILY 07/12/22 07/12/22 History L.acidoph,Paracasei, B.lactis 1 cap PO DAILY 07/12/22 07/12/22 History [Probiotic] Levothyroxine Sodium [Synthroid] 125 mcg PO DAILY 07/12/22 07/12/22 History Vitamin B Complex 1 cap PO DAILY 07/12/22 07/12/22 History Zinc Gluconate [Zinc] 50 mg PO DAILY 07/12/22 07/12/22 History hydroCHLOROthiazide [Hydrodiuril] 25 mg PO DAILY 07/12/22 07/12/22 History metFORMIN HCL [Glucophage] 500 mg PO W/SUPPER 07/12/22 07/12/22 History Allergies Allergy/AdvReac Type Severity Reaction Status Date / Time No Known Allergies Allergy Verified 07/12/22 13:23 Physical Examination - Vital Signs Vital Signs: Vital Signs Temp Pulse Resp BP Pulse Ox 07/13/22 19:07 99.1 F 07/13/22 17:15 100.9 F H 07/13/22 15:11 99.5 F 07/13/22 13:00 99.9 F H 77 17 128/86 96 07/13/22 07:22 98.0 F 75 17 118/62 99 07/13/22 01:05 97.7 F 75 16 91/47 97 07/12/22 21:43 75 16 01/12/23 19:34 97.6 F 96 14 97 Intake and Output 07/13/22 07/13/22 07/13/22 06:59 14:59 22:59 Output Total 0 Balance 0 Output: Urine 0 Other: Voiding Method Toilet # Voids 5 Patient is an elderly female, in no acute distress. Patient is alert awake oriented to time place and person. Speech and language functions are normal. Patient can name and repeat very well. No aphasia or dysarthria. Attention, concentration and fund of knowledge is adequate. On cranial nerve examination, pupils are equal, round and reacting to light, visual mae are full on confrontation, with no neglect on double simultaneous depression. Extraocular muscles are intact with no nystagmus. Patient has left facial weakness, peripheral type from her previous Reynolds's palsy. Her tongue protrudes to the midline. Palatal elevation and sensation normal, hearing and shoulder shrug normal, facial sensation normal. On muscle strength testing, there is no pronator drift and the strength is normal in arms and legs distally and proximally. Deep tendon reflexes are symmetric 2 all over and plantars downgoing bilaterally. Sensory to touch is equal with no neglect on double simultaneous stimulation. Cerebellar function showed no ataxia for [id number] testing. No dysdiadochokinesia. No ataxia for [id number] testing on either side. Tone and bulk of muscles normal. Gait deferred.. On general examination, there is no carotid bruit or murmur, S1-S2 audible. Chest is clear on consultation. Abdomen is soft nontender. No organomegaly, bowel sounds present. Peripheral pulses are present. No edema. Results - Laboratory Findings CBC and BMP: 07/12/22 12:23 07/13/22 06:22 Abnormal Lab Findings: Abnormal Labs 07/12/22 07/12/22 07/12/22 12:23 13:30 20:19 Sodium 135 L Potassium 3.0 L Chloride 97 L Carbon Dioxide 32 H BUN 39 H Creatinine 1.35 H Est GFR (CKD-EPI)AfAm Est GFR (CKD-EPI)NonAf BUN/Creatinine Ratio Glucose 101 H POC Glucose (mg/dL) 138 H Hemoglobin A1c Calcium 15.8 H* Albumin/Globulin Ratio Vitamin B12 Vitamin D 25-Hydroxy PTH Intact Ur Leukocyte Esterase Trace H Urine Mucus Rare H 01/07/13/22 07/13/22 05:55 06:22 06:22 Sodium Potassium 3.3 L Chloride Carbon Dioxide BUN 28.9 H Creatinine Est GFR (CKD-EPI)AfAm 51.8 L Est GFR (CKD-EPI)NonAf 44.7 L BUN/Creatinine Ratio 23.50 H Glucose 112 H POC Glucose (mg/dL) 117 H Hemoglobin A1c 6.2 H Calcium 13.3 H* Albumin/Globulin Ratio 1.55 L Vitamin B12 1419.0 H Vitamin D 25-Hydroxy PTH Intact Ur Leukocyte Esterase Urine Mucus 07/13/22 07/13/22 11:34 11:34 Sodium Potassium Chloride Carbon Dioxide BUN Creatinine Est GFR (CKD-EPI)AfAm Est GFR (CKD-EPI)NonAf BUN/Creatinine Ratio Glucose POC Glucose (mg/dL) Hemoglobin A1c Calcium Albumin/Globulin Ratio Vitamin B12 Vitamin D 25-Hydroxy 23.9 L PTH Intact 12.3 L Ur Leukocyte Esterase Urine Mucus Assessment and Plan Assessment: * Abnormal brain MRI with evidence of small vessel disease. No acute ischemic process. * Hypertension * Diabetes * Hyperlipidemia * Hypercalcemia * Hypothyroidism * History of left Reynolds's palsy, with mild residual deficits * Obesity with BMI of 33.7. Plan: * Patient's MRI of the brain revealed no acute ischemic process. Patient probably has white matter disease noted on MRI. She does have multiple vascular risk factors. * Recommend continue aspirin 81 mg daily. * Diabetes is well controlled, with hemoglobin A1c 6.2 * Lipid panel with cholesterol 203, LDL 126, HDL 42 and triglycerides 170. Suggest starting Lipitor 20 mg daily. * Patient had a carotid Doppler on 07/07/2018, which showed no hemodynamically significant stenosis in either ICA. Antegrade flow in both vertebral arteries. No need to repeat. * Treatment of hypercalcemia and other endocrine abnormalities as per IM. * Neurologically, no other workup indicated. * Thank you for the consult.
[2022-07-14] MEDS: SODIUM CHLORIDE 0.9% 1,000 ML IV SCH ×4 (01:58→20:05)
[2022-07-14 06:24] LABS: Glucose,Whole Blood 93 mg/dL (70-110)
[2022-07-14] MEDS: LEVOTHYROXINE 125 MCG TAB PO SCH (06:41)
[2022-07-14] MEDS: INSULIN ASPART (NovoLOG) 100 UNIT/ML VIAL SQ SCH ×4 (06:42→22:56)
[2022-07-14] MEDS: ASPIRIN 81 MG PO SCH (08:33)
[2022-07-14] MEDS: ASCORBIC ACID 500 MG TAB PO SCH (08:33)
[2022-07-14] MEDS: PANTOPRAZOLE 40 MG TABLET PO SCH (08:33)
[2022-07-14] MEDS: HEPARIN SODIUM,PORCINE/PF 5,000 UNIT/0.5 ML SYRINGE SQ SCH ×2 (08:33→20:06)
--- NOTE | 2022-07-14 11:28 | P.PN ---
Subjective Progress Note Date: 07/14/22 Principal diagnosis: Follow-up off this 67-year-old with hypercalcemia and acute kidney injury. Hypercalcemia is deemed to be from calcium and vitamin D supplementation and thiazide. Has been treated with calcitonin Zometa and Lasix. Creatinine is pending this morning but as of yesterday improved to 1.2 and the calcium is still high at 13.3 but down from 15.8 day before yesterday. Vital signs stable urine output not documented. Workup has included Vitamin D 25-hydroxy of 23.9, PTH of 12 vitamin D 125 and PTH related peptide not available. Urinalysis shows no proteinuria This morning she is feeling very well much better than before overall. She is on IV fluids normal saline. Objective - Vital Signs Vital signs: Vital Signs Temp 97.6 F 07/14/22 07:27 Pulse 72 07/14/22 10:25 Resp 18 07/14/22 10:25 BP 111/76 07/14/22 07:27 Pulse Ox 95 07/14/22 07:27 FiO2 Intake & Output 07/13/22 07/14/22 07/14/22 18:59 06:59 18:59 Other: Voiding Method Toilet Toilet # Voids 5 3 Awake alert oriented HEENT exam no JVP neck is supple no facial asymmetry Lungs clear to auscultation good air entry Heart sounds unremarkable Abdomen soft except exam no edema Neurologically awake alert oriented - Labs CBC & Chem 7: 07/12/22 12:23 07/13/22 06:22 Labs: Abnormal Lab Results - Last 24 Hours (Table) 07/13/22 07/13/22 07/13/22 Range/Units 06:22 06:22 11:34 Potassium 3.3 L (3.5-5.5) mmol/L BUN 28.9 H (9.0-27.0) mg/dL Est GFR (CKD-EPI)AfAm 51.8 L (60.0-200.0) Est GFR (CKD-EPI)NonAf 44.7 L (60.0-200.0) BUN/Creatinine Ratio 23.50 H (12.00-20.00) Ratio Glucose 112 H (70-110) mg/dL Hemoglobin A1c 6.2 H (0.0-6.0) % Calcium 13.3 H* (8.7-10.3) mg/dL Albumin/Globulin Ratio 1.55 L (1.60-3.17) g/dL Vitamin B12 1419.0 H (200.0-944.0) pg/mL Vitamin D 25-Hydroxy 23.9 L (30.0-100.0) ng/mL PTH Intact (14.0-72.0) pg/mL 07/13/22 Range/Units 11:34 Potassium (3.5-5.5) mmol/L BUN (9.0-27.0) mg/dL Est GFR (CKD-EPI)AfAm (60.0-200.0) Est GFR (CKD-EPI)NonAf (60.0-200.0) BUN/Creatinine Ratio (12.00-20.00) Ratio Glucose (70-110) mg/dL Hemoglobin A1c (0.0-6.0) % Calcium (8.7-10.3) mg/dL Albumin/Globulin Ratio (1.60-3.17) g/dL Vitamin B12 (200.0-944.0) pg/mL Vitamin D 25-Hydroxy (30.0-100.0) ng/mL PTH Intact 12.3 L (14.0-72.0) pg/mL Assessment and Plan Assessment: Impression 1. Acute kidney injury secondary to hypercalcemia improving. 2. Hypercalcemia secondary to possibly calcium and vitamin D although she claims she is taking only 1 tablet of calcium with 500 mg and one multivitamin with vitamin D in both of those. So for PTH is low 12.3 and vitamin D 25 level is 23.9 low. She has had mammogram recently not had a Pelvic because of hysterectomy in the past and has had a colonoscopy in the last few years. Urinalysis negative for protein. Calcium is down from 15.8 day before yesterday to 13.3 yesterday 3. Mild hypo- kalemia secondary to saline and Lasix Recommendation 1. Continue normal saline 2. Replace potassium 40 mg once 3. Hold the Lasix 5. Rule out malignancy related hypercalcemia with PTH related peptide and a vitamin D 25-hydroxy level
[2022-07-14] MEDS ORDERED: POTASSIUM CHLORIDE ER 20 MEQ TAB.ER PO STA (11:29)
[2022-07-14 11:31] LABS: Glucose,Whole Blood 103 mg/dL (70-110)
[2022-07-14 11:36] LABS: Magnesium 1.1 mg/dL (1.5-2.4)
[2022-07-14 12:38] LABS: African American GFR (CKD) 75.6 (60.0-200.0); Anion Gap 10.7 mmol/L (10.00-18.00); BUN/Creat Ratio 17.22 Ratio (12.00-20.00); Blood Urea Nitrogen 15.5 mg/dL (9.0-27.0); Calcium 10.3 mg/dL (8.7-10.3); Carbon Dioxide 23.3 mmol/L (20.0-27.5); Non-African American GFR(CKD) 65.2 (60.0-200.0); Potassium 2.8 mmol/L (3.5-5.5)
--- NOTE | 2022-07-14 14:40 | P.PN ---
Subjective Progress Note Date: 07/14/22 This is a pleasant 67 years old female with past medical history of CVA/TIA, Diabetes Mellitus, GERD/Reflux, Hypertension, hypothyroidism Patient was noticed by family including daughter that she's having slow movement with slow speech She has been having nauseated on and off Abdomen she is tender up to move and to wake she loses her balance. She lost 20 pounds since January, she has low appetite She denies chest pain or dyspnea. she Has chronic cough and sinus disease. No sinus symptoms now She denies abdominal pain or vomiting but she's been constipated which can be explained by hypercalcemia, urinary symptoms are absent, no dysuria or urgency, she denies headache or dizziness no weakness or numbness She is not a smoker, no alcohol, no illicit drugs She sees Cassie [facility] office Vitals are stable Labs including CBC is unremarkable Sodium 135, potassium 3, creatinine elevated 1.3. Calcium is high at 15.8 which is significantly high. Liver enzymes not elevated. Urine analysis is negative. Viruses are undetected including influenza, carotid and RSV CT of the brain: Degenerative changes in the faint nonspecific white matter changes most typical of remote ischemia given the patient's symptoms consider MRI with diffusion image to exclude earlier ischemia EKG showing normal sinus rhythm at [address]-T changes Patient started on IV fluids status post one time IV Lasix 07/13/2022 Patient clinically she is somewhat better although overall much different than yesterday. She still constipated She's on IV fluids and she is going to the bathroom every 1-2 hours, she says she has no problem walking, no bolus problem today. She has this bolus problem prior to hospitalization but now resolved, no headache or dizziness or weakness or numbness. chest x-ray: No acute process Calcium and vasa are stopped and patient informed and she agrees She is status post IV Lasix and zelondronic 1 Nephrology team on the case Hypercalcemia workup is ordered and pending Calcium improving down to 13.3 and creatinine down to 1. 1/14. Patient seen and examined. Laying comfortably in the bed. Denies any shortness of breath. Denies any nausea or vomiting. REVIEW OF SYSTEMS: CONSTITUTIONAL: No fever, no malaise,. CARDIOVASCULAR: No chest pain, no palpitations, no syncope. PULMONARY: No shortness of breath, no cough, GASTROINTESTINAL: No diarrhea, no nausea, no vomiting, no abdominal pain. NEUROLOGICAL: No headaches, no weakness, PHYSICAL EXAMINATION: GENERAL: The patient is alert and oriented x3, not in any acute distress. Well developed, well nourished. HEENT: Pupils are round and equally reacting to light. EOMI. No scleral icterus. No conjunctival pallor. Normocephalic, atraumatic. No pharyngeal erythema. No thyromegaly. CARDIOVASCULAR: S1 and S2 present. No murmurs, rubs, or gallops. PULMONARY: Chest is clear to auscultation, no wheezing or crackles. ABDOMEN: Soft, nontender, nondistended, normoactive bowel sounds. No palpable organomegaly. MUSCULOSKELETAL: No joint swelling or deformity. EXTREMITIES: No cyanosis, clubbing, or pedal edema. NEUROLOGICAL: Gross neurological examination did not reveal any focal deficits. SKIN: No rashes. Assessment and plan Hypercalcemia secondary to possibly calcium and vitamin D although she claims she is taking only 1 tablet of calcium with 500 mg and one multivitamin with vitamin D in both of those. So for PTH is low 12.3 and vitamin D 25 level is 23.[address] of the brain with white matter changes most typical of remote ischemia given the patient's symptoms consider MRI with diffusion image to exclude earlier ischemia Diabetes mellitus History of GERD Hypertension Hypothyroidism History of CVA/TIA Obesity with BMI of 33.7 Plan: Monitor CBC Monitor CMP Continue with IV fluids Follow-up in nephrology recommendations Continue aspirin. Nephrology reviewed MRI the brain, revealing no acute ischemic process DVT prophylaxis: Objective - Vital Signs Vital signs: Vital Signs Temp 97.6 F 07/14/22 07:27 Pulse 72 07/14/22 10:25 Resp 18 07/14/22 10:25 BP 111/76 07/14/22 07:27 Pulse Ox 95 07/14/22 07:27 FiO2 Intake & Output 07/13/22 07/14/22 07/14/22 18:59 06:59 18:59 Intake Total 250 Balance 250 Intake: Oral 250 Other: Voiding Method Toilet Toilet # Voids 5 3 - Labs CBC & Chem 7: 07/12/22 12:23 07/14/22 07:00 Labs: Abnormal Lab Results - Last 24 Hours (Table) 07/13/22 07/13/22 07/14/22 Range/Units 11:34 11:34 07:00 Potassium 2.8 L (3.5-5.5) mmol/L Magnesium 1.1 L (1.5-2.4) mg/dL Vitamin D 25-Hydroxy 23.9 L (30.0-100.0) ng/mL PTH Intact 12.3 L (14.0-72.0) pg/mL
[2022-07-14 16:40] LABS: Glucose,Whole Blood 105 mg/dL (70-110)
[2022-07-14 20:45] LABS: Glucose,Whole Blood 141 mg/dL (70-110)
[2022-07-14 21:08] LABS: Magnesium 1.1 mg/dL (1.6-2.3); Potassium 3.2 mmol/L (3.5-5.1)
[2022-07-14] MEDS ORDERED: Magnesium Replacement Protocol 1 EACH MISC MISCELLANE PRN (22:28)
[2022-07-14] MEDS ORDERED: Potassium Replacement Protocol 1 EACH MISC MISCELLANE PRN (22:28)
[2022-07-14] MEDS: MAGNESIUM SULFATE-D5W PMX 1 GM in DEXTROSE/WATER 1 100ML.BAG IVPB SCH (23:13)
[2022-07-14] MEDS: POTASSIUM CHLORIDE ER 20 MEQ TAB.ER PO SCH (23:13)
[2022-07-15] MEDS: MAGNESIUM SULFATE-D5W PMX 1 GM in DEXTROSE/WATER 1 100ML.BAG IVPB SCH ×2 (00:43→01:35)
[2022-07-15] MEDS: POTASSIUM CHLORIDE ER 20 MEQ TAB.ER PO SCH (00:43)
[2022-07-15] MEDS: SODIUM CHLORIDE 0.9% 1,000 ML IV SCH ×2 (01:37→07:53)
[2022-07-15] MEDS: LEVOTHYROXINE 125 MCG TAB PO SCH (06:16)
[2022-07-15 06:39] LABS: Glucose,Whole Blood 116 mg/dL (70-110)
[2022-07-15] MEDS: INSULIN ASPART (NovoLOG) 100 UNIT/ML VIAL SQ SCH ×2 (06:58→12:24)
[2022-07-15] MEDS: ASPIRIN 81 MG PO SCH (07:52)
[2022-07-15] MEDS: PANTOPRAZOLE 40 MG TABLET PO SCH (07:52)
[2022-07-15] MEDS: ASCORBIC ACID 500 MG TAB PO SCH (07:52)
[2022-07-15] MEDS: HEPARIN SODIUM,PORCINE/PF 5,000 UNIT/0.5 ML SYRINGE SQ SCH (07:52)
[2022-07-15 09:17] VITALS: BP 121/79; PULSE 71; RESP 18; TEMP 98.2
[2022-07-15 09:23] LABS: African American GFR (CKD) 77.6 (60.0-200.0); Albumin 3.6 g/dL (3.8-4.9); Albumin/Globulin Ratio 1.52 (1.60-3.17); Anion Gap 11.8 mmol/L (10.00-18.00); BUN/Creat Ratio 14.19 Ratio (12.00-20.00); Blood Urea Nitrogen 12.5 mg/dL (9.0-27.0); Carbon Dioxide 19.1 mmol/L (20.0-27.5); Globulin 2.4 g/dL (1.6-3.3); Magnesium 1.8 mg/dL (1.5-2.4); Non-African American GFR(CKD) 66.9 (60.0-200.0); Potassium 3.4 mmol/L (3.5-5.5); Total Bilirubin 0.4 mg/dL (0.30-1.20)
[2022-07-15 09:39] LABS: HCT 36.8 % (37.2-46.3); HGB 11.4 g/dL (12.0-15.0); MCH 26.7 pg (27.0-32.0); MCV 86.2 fL (80.0-97.0); Mean Platelet Volume 10.7 fL (9.5-12.2); NRBC Per 100 WBC 0 /100 WBCS (0.0-0.0); Platelet Count 148 X 10*3/uL (140-440); RBC 4.27 X 10*6/uL (4.10-5.20); WBC 5.86 X 10*3/uL (4.50-10.00)
--- NOTE | 2022-07-15 11:33 | P.PN ---
Subjective Progress Note Date: 07/15/22 Principal diagnosis: Follow-up off this 67-year-old with hypercalcemia and acute kidney injury. Hypercalcemia is deemed to be from calcium and vitamin D supplementation and thiazide. Has been treated with calcitonin Zometa and Lasix. Vital signs stable urine output not documented. Workup has included Vitamin D 25-hydroxy of 23.9, PTH of 12. Yesterday ordered vitamin D 125 and PTH related peptide, results not available. Urinalysis shows no proteinuria This morning she is feeling very well much better than before overall. She is on IV fluids normal saline. Creatinine is down to 0.9, calcium is down to 9 Objective - Vital Signs Vital signs: Vital Signs Temp 98.2 F 07/15/22 07:22 Pulse 71 07/15/22 07:22 Resp 18 07/15/22 09:18 BP 121/79 07/15/22 07:22 Pulse Ox 95 07/15/22 07:22 FiO2 Intake & Output 07/14/22 07/15/22 07/15/22 18:59 06:59 18:59 Intake Total 500 2910 Balance 500 2910 Intake: Intake, IV Titration 1950 Amount Magnesium Sulfate-D5w Pmx 300 1 gm In Dextrose/Water 1 100ml.bag @ 100 mls/hr IVPB Q1H RODRIGO Rx#: [id number] Sodium Chloride 0.9% 1, 1650 000 ml @ 150 mls/hr IV . Q6H40M RODRIGO Rx#:[id number] Oral 500 960 Other: Voiding Method Toilet Toilet # Voids 6 10 Awake alert oriented HEENT exam no JVP neck is supple no facial asymmetry Lungs clear to auscultation good air entry Heart sounds unremarkable Abdomen soft except exam no edema Neurologically awake alert oriented - Labs CBC & Chem 7: 07/15/22 06:43 07/15/22 06:43 Labs: Abnormal Lab Results - Last 24 Hours (Table) 07/14/22 07/14/22 07/14/22 Range/Units 07:00 20:05 20:43 Hgb (12.0-15.0) g/dL Hct (37.2-46.3) % MCH (27.0-32.0) pg MCHC (32.0-37.0) g/dL Potassium 2.8 L 3.2 L (3.5-5.5) mmol/L Chloride (96-109) mmol/L Carbon Dioxide (20.0-27.5) mmol/L Glucose (70-110) mg/dL POC Glucose (mg/dL) 141 H (70-110) mg/dL Magnesium 1.1 L 1.1 L (1.5-2.4) mg/dL Total Protein (6.2-8.2) g/dL Albumin (3.8-4.9) g/dL Albumin/Globulin Ratio (1.60-3.17) g/dL 07/15/22 07/15/22 07/15/22 Range/Units 06:38 06:43 06:43 Hgb 11.4 L (12.0-15.0) g/dL Hct 36.8 L (37.2-46.3) % MCH 26.7 L (27.0-32.0) pg MCHC 31.0 L (32.0-37.0) g/dL Potassium 3.4 L (3.5-5.5) mmol/L Chloride 111 H (96-109) mmol/L Carbon Dioxide 19.1 L (20.0-27.5) mmol/L Glucose 120 H (70-110) mg/dL POC Glucose (mg/dL) 116 H (70-110) mg/dL Magnesium (1.5-2.4) mg/dL Total Protein 6.0 L (6.2-8.2) g/dL Albumin 3.6 L (3.8-4.9) g/dL Albumin/Globulin Ratio 1.52 L (1.60-3.17) g/dL Assessment and Plan Assessment: Impression 1. Acute kidney injury secondary to hypercalcemia improving. Creatinine down to 0.9 2. Hypercalcemia secondary to possibly calcium and vitamin D although she claims she is taking only 1 tablet of calcium with 500 mg and one multivitamin with vitamin D in both of those. So for PTH is low 12.3 and vitamin D 25 level is 23.9 low. She has had mammogram recently not had a Pelvic because of hysterectomy in the past and has had a colonoscopy in the last few years. Urinalysis negative for protein. Calcium is down from 15.8-9 this morning 3. Mild hypo- kalemia secondary to saline and Lasix Recommendation 1. DC IV normal saline 2. Replace potassium 40 mg once 3. Rule out malignancy related hypercalcemia with PTH related peptide and a vitamin D 25-hydroxy level Patient can be discharged home and followed up as an outpatient she has been advised not to take any calcium or vitamin D and to be followed up closely with repeat calciums as needed
[2022-07-15 12:03] LABS: Glucose,Whole Blood 128 mg/dL (70-110)
[2022-07-15] MEDS ORDERED: POTASSIUM CHLORIDE ER 20 MEQ TAB.ER PO STA (12:28)
--- NOTE | 2022-07-15 12:30 | P.DS ---
Providers Date of admission: 07/12/22 14:29 Expected date of discharge: 07/15/22 Attending physician: Robert Ervin MD Consults: 07/12/22 14:28 Consult Physician Routine Consulting Provider: Ciro Galicia Consult Reason/Comments: hypercalcemia Do you want consulting provider notified?: Yes 07/13/22 18:40 Consult Physician Routine Consulting Provider: Criselda Thomas Consult Reason/Comments: abnormal MRI with B/L mulotiple brain foci Do you want consulting provider notified?: Yes Primary care physician: Yaya Moore [facility] Course: Discharge diagnoses; Hypercalcemia secondary to possibly calcium and vitamin D although she claims she is taking only 1 tablet of calcium with 500 mg and one multivitamin with vitamin D in both of those. So for PTH is low 12.3 and vitamin D 25 level is 23.[address] of the brain with white matter changes most typical of remote ischemia given the patient's symptoms consider MRI with diffusion image to exclude earlier ischemia Diabetes mellitus History of GERD Hypertension Hypothyroidism History of CVA/TIA Obesity with BMI of 33.7 Hospital course; This is a pleasant 67 years old female with past medical history of CVA/TIA, Diabetes Mellitus, GERD/Reflux, Hypertension, hypothyroidism Patient was noticed by family including daughter that she's having slow movement with slow speech She has been having nauseated on and off Abdomen she is tender up to move and to wake she loses her balance. She lost 20 pounds since January, she has low appetite She denies chest pain or dyspnea. she Has chronic cough and sinus disease. No sinus symptoms now She denies abdominal pain or vomiting but she's been constipated which can be explained by hypercalcemia, urinary symptoms are absent, no dysuria or urgency, she denies headache or dizziness no weakness or numbness She is not a smoker, no alcohol, no illicit drugs She sees Cassie Moore office Vitals are stable Labs including CBC is unremarkable Sodium 135, potassium 3, creatinine elevated 1.3. Calcium is high at 15.8 which is significantly high. Liver enzymes not elevated. Urine analysis is negative. Viruses are undetected including influenza, carotid and RSV CT of the brain: Degenerative changes in the faint nonspecific white matter changes most typical of remote ischemia given the patient's symptoms consider MRI with diffusion image to exclude earlier ischemia EKG showing normal sinus rhythm at [address]-T changes Patient started on IV fluids status post one time IV Lasix 07/13/2022 Patient clinically she is somewhat better although overall much different than yesterday. She still constipated She's on IV fluids and she is going to the bathroom every 1-2 hours, she says she has no problem walking, no bolus problem today. She has this bolus problem prior to hospitalization but now resolved, no headache or dizziness or weakness or numbness. chest x-ray: No acute process Calcium and vasa are stopped and patient informed and she agrees She is status post IV Lasix and zelondronic 1 Nephrology team on the case Hypercalcemia workup is ordered and pending Calcium improving down to 13.3 and creatinine down to 1. 07/14. Patient seen and examined. Laying comfortably in the bed. Denies any shortness of breath. Denies any nausea or vomiting. 07/15. Patient seen and examined. Calcium levels have improved to 9. Potassium level was 3.4, and his been ordered. Nephrology is cleared the patient for discharge. PHYSICAL EXAMINATION: GENERAL: The patient is alert and oriented x3, not in any acute distress. Well developed, well nourished. HEENT: Pupils are round and equally reacting to light. EOMI. No scleral icterus. No conjunctival pallor. Normocephalic, atraumatic. No pharyngeal erythema. No thyromegaly. CARDIOVASCULAR: S1 and S2 present. No murmurs, rubs, or gallops. PULMONARY: Chest is clear to auscultation, no wheezing or crackles. ABDOMEN: Soft, nontender, nondistended, normoactive bowel sounds. No palpable organomegaly. MUSCULOSKELETAL: No joint swelling or deformity. EXTREMITIES: No cyanosis, clubbing, or pedal edema. NEUROLOGICAL: Gross neurological examination did not reveal any focal deficits. SKIN: No rashes. Patient Condition at Discharge: Fair Plan - Discharge Summary New Discharge Prescriptions: Continue Magnesium Gluconate [Magonate] 500 mg PO DAILY Vitamin C/Biotin [Hair, Skin and Nails Chew] 1 tab PO DAILY Multivit-Min/Iron/Folic/Lutein [Centrum Silver Women Tablet] 1 tab PO DAILY Cranberry Fruit Extract [Cranberry] 500 mg PO DAILY Aspirin [Adult Low Dose Aspirin EC] 81 mg PO DAILY Losartan Potassium 50 mg PO DAILY Omeprazole 20 mg PO DAILY Zinc Gluconate [Zinc] 50 mg PO DAILY L.acidoph,Paracasei, B.lactis [Probiotic] 1 cap PO DAILY Garlic 1,000 mg PO DAILY Albuterol Sulfate [Albuterol Sulfate Hfa] 1 puff PO Q4H PRN PRN Reason: Shortness Of Breath Biotin 5 mg PO DAILY Ascorbic Acid [Vitamin C] 500 mg PO DAILY Fish Oil/Dha/Epa [Fish Oil 1,200 mg Fish Oil] 1 cap PO DAILY Vitamin B Complex 1 cap PO DAILY metFORMIN HCL [Glucophage] 500 mg PO W/SUPPER Levothyroxine Sodium [Synthroid] 125 mcg PO DAILY Cider Vinegar [Apple Cider Vinegar] 300 mg PO DAILY Discontinued hydroCHLOROthiazide [Hydrodiuril] 25 mg PO DAILY Calcium Carbonate/Vitamin D3 [Calcium 600 mg-D3 10 Mcg (400 Iu)] 1 cap PO DAILY Discharge Medication List Aspirin [Adult Low Dose Aspirin EC] 81 mg PO DAILY 06/07/17 [History] Cranberry Fruit Extract [Cranberry] 500 mg PO DAILY 06/07/17 [History] Losartan Potassium 50 mg PO DAILY 06/07/17 [History] Magnesium Gluconate [Magonate] 500 mg PO DAILY 06/07/17 [History] Multivit-Min/Iron/Folic/Lutein [Centrum Silver Women Tablet] 1 tab PO DAILY 06/07/17 [History] Omeprazole 20 mg PO DAILY 06/07/17 [History] Vitamin C/Biotin [Hair, Skin and Nails Chew] 1 tab PO DAILY 06/07/17 [History] Albuterol Sulfate [Albuterol Sulfate Hfa] 1 puff PO Q4H PRN 07/12/22 [History] Ascorbic Acid [Vitamin C] 500 mg PO DAILY 07/12/22 [History] Biotin 5 mg PO DAILY 07/12/22 [History] Cider Vinegar [Apple Cider Vinegar] 300 mg PO DAILY 07/12/22 [History] Fish Oil/Dha/Epa [Fish Oil 1,200 mg Fish Oil] 1 cap PO DAILY 07/12/22 [History] Garlic 1,000 mg PO DAILY 07/12/22 [History] L.acidoph,Paracasei, B.lactis [Probiotic] 1 cap PO DAILY 07/12/22 [History] Levothyroxine Sodium [Synthroid] 125 mcg PO DAILY 07/12/22 [History] Vitamin B Complex 1 cap PO DAILY 07/12/22 [History] Zinc Gluconate [Zinc] 50 mg PO DAILY 07/12/22 [History] metFORMIN HCL [Glucophage] 500 mg PO W/SUPPER 07/12/22 [History] Follow up Appointment(s)/Referral(s): Lashae Luciano MD [STAFF PHYSICIAN] - 1 Week Yaya Moore MD [Primary Care Provider] - 1-2 days Discharge Disposition: HOME SELF-CARE
[2022-07-16 10:09] LABS: Angiotensin-1 Converting Enz. 103 U/L (8-52)
[2022-07-16 12:37] LABS: Free Lambda Lt Chain Qnt, Seru 2.64 mg/dL (0.57-2.63)
[2022-07-16 21:44] LABS: Vitamin D, 1, 25-Dihydroxy 95 pg/mL (20 - 79)
[2022-07-18 15:38] LABS: Albumin 3.78 g/dL (3.80-4.90)
== END 2022-07-15 13:20 | disposition home or self-care (01) | DRG 641 ==
LOC: EC 11:31 → 4SSUR 14:29
PROVIDERS: ADMIT Internal Medicine; ATTEND Internal Medicine
DX: E83.52 Hypercalcemia (principal); N17.9 Acute kidney failure, unspecified; T50.2X5A Adverse effect of carbonic-anhydrase inhibitors, benzothiadiazides and other diuretics, initial encounter; Z68.33 Body mass index [BMI] 33.0-33.9, adult; Z79.82 Long term (current) use of aspirin; T45.2X5A Adverse effect of vitamins, initial encounter; E03.9 Hypothyroidism, unspecified; E11.9 Type 2 diabetes mellitus without complications; Z79.84 Long term (current) use of oral hypoglycemic drugs; G51.0 Bell's palsy; E87.6 Hypokalemia; Z20.822 Contact with and (suspected) exposure to COVID-19; E66.9 Obesity, unspecified; E78.5 Hyperlipidemia, unspecified; Z79.899 Other long term (current) drug therapy; Z86.73 Personal history of transient ischemic attack (TIA), and cerebral infarction without residual deficits; Z79.890 Hormone replacement therapy
CPT/HCPCS: 36415; 70450; 70551; 71046; 80048; 80053; 81001; 82164; 82306; 82607; 82652; 83036; 83605; 83735; 83883; 83970; 84132; 84165; 85025; 85027; 86334; 86335; 87636; 93005

== ENCOUNTER 2022-07-16 12:28 | Emergency (ER) | payer MEDICARE ==
[2022-07-16] MEDS ORDERED: SODIUM CHLORIDE 0.9% 1,000 ML IV STA (12:55)
[2022-07-16] MEDS ORDERED: SODIUM CHLORIDE 0.9% 500 ML 500 ML IV STA (12:55)
[2022-07-16] MEDS ORDERED: ASPIRIN 81 MG PO STA (12:55)
[2022-07-16] MEDS ORDERED: LORazepam 2 MG/ML INJ IV STA (12:56)
[2022-07-16 13:30] LABS: Basophils % (A) 1 %; Eosinophils # (A) 0.4 k/uL (0-0.7); Eosinophils % (A) 7 %; HGB 11.8 gm/dL (11.4-16.0); Lymphocytes # (A) 1.1 k/uL (1.0-4.8); Lymphocytes % (A) 18 %; MCH 27.3 pg (25.0-35.0); MCHC 33.7 g/dL (31.0-37.0); MCV 81.2 fL (80.0-100.0); Mean Platelet Volume 8.2; Monocytes # (A) 0.4 k/uL (0-1.0); Monocytes % (A) 6 %; Neutrophils # (A) 4.1 k/uL (1.3-7.7); Neutrophils % (A) 67 %; Platelet Count 146 k/uL (150-450); RBC 4.32 m/uL (3.80-5.40); RDW 13.9 % (11.5-15.5); WBC 6.1 k/uL (3.8-10.6)
[2022-07-16 13:47] LABS: ALT 50 U/L (4-34); AST 47 U/L (14-36); African American GFR (CKD) >90 (>60 ml/min/1.73 sqM); Albumin 3.6 g/dL (3.5-5.0); Alkaline Phosphatase 114 U/L (38-126); Anion Gap 7 mmol/L; Blood Urea Nitrogen 12 mg/dL (7-17); Calcium 8.3 mg/dL (8.4-10.2); Carbon Dioxide 21 mmol/L (22-30); Chloride 113 mmol/L (98-107); Glucose 106 mg/dL (74-99); Magnesium 1.2 mg/dL (1.6-2.3); Non-African American GFR(CKD) 89 (>60 ml/min/1.73 sqM); Phosphorus 1.8 mg/dL (2.5-4.5); Potassium 3.3 mmol/L (3.5-5.1); Sodium 141 mmol/L (137-145); Total Bilirubin 0.6 mg/dL (0.2-1.3); Total Protein 6.5 g/dL (6.3-8.2)
[2022-07-16 13:49] LABS: INR 1.1 (<1.2); Partial Thromboplastin Time 25.6 sec (22.0-30.0); Prothrombin Time 11.1 sec (9.0-12.0)
--- NOTE | 2022-07-16 14:02 | XR ---
EXAMINATION TYPE: XR chest 2V DATE OF EXAM: 07/16/2022 1:57 PM COMPARISON: Chest radiographs from 07/13/2022. TECHNIQUE: XR chest 2V Frontal and lateral views of the chest. CLINICAL INDICATION:Female, 67 years old with history of Chest Pain; FINDINGS: Lungs/Pleura: There is no evidence of pleural effusion, focal consolidation, or pneumothorax. Eventr ation of the right hemidiaphragm. Pulmonary vascularity: Unremarkable. Heart/mediastinum: Cardiomediastinal silhouette is prominent in size. Musculoskeletal: No acute osseous pathology. Mild multilevel degenerative disc disease. IMPRESSION: No acute cardiopulmonary disease/process.
[2022-07-16] MEDS ORDERED: POTASSIUM CHLORIDE ER 20 MEQ TAB.ER PO STA (15:57)
[2022-07-16] MEDS: MAGNESIUM SULFATE-D5W PMX 1 GM in DEXTROSE/WATER 1 100ML.BAG IVPB SCH ×2 (16:11→17:11)
[2022-07-16 16:13] VITALS: RESP 18
--- NOTE | 2022-07-16 16:22 | ED ---
General Adult HPI - General Chief complaint: Chest Pain Stated complaint: "vibrating all over" Time Seen by Provider: 07/16/22 12:47 Source: patient Mode of arrival: wheelchair Limitations: no limitations - History of Present Illness Initial comments: This 67-year-old female presents with a complaint of some left-sided chest pain. This is described as pressure-like. It is minimal in severity. It just came on over the last 1 day. She denies any shortness of breath. She states that she's been very anxious. She was just discharged from the hospital yesterday. She apparently was admitted for 3 days for hypercalcemia. She states that she received multiple IV fluids. She had thorough work up and apparently has follow-up in 2 days with a tubing tester. She is to find out the lab results and diagnosis and prognosis. She's been extremely stressed in this regard. She does complain of some lightheadedness at times as well as anxiety. She denies any leg pain or swelling. She denies any history of coronary artery disease or myocardial infarction. She just had a negative stress test and echocardiogram 2 months ago. She does complain of paresthesias throughout her extremity or facial region. She denies any other complaints or modifying factors - Related Data Home Medications Medication Instructions Recorded Confirmed Aspirin [Adult Low Dose Aspirin EC] 81 mg PO DAILY 06/07/17 07/16/22 Cranberry Fruit Extract [Cranberry] 500 mg PO DAILY 06/07/17 07/16/22 Losartan Potassium 50 mg PO DAILY 06/07/17 07/16/22 Magnesium Gluconate [Magonate] 500 mg PO DAILY 06/07/17 07/16/22 Multivit-Min/Iron/Folic/Lutein 1 tab PO DAILY 06/07/17 07/16/22 [Centrum Silver Women Tablet] Omeprazole 20 mg PO DAILY 06/07/17 07/16/22 Vitamin C/Biotin [Hair, Skin and 1 tab PO DAILY 06/07/17 07/16/22 Nails Chew] Albuterol Sulfate [Albuterol 1 puff INHALATION RT-Q4H PRN 07/12/22 07/16/22 Sulfate Hfa] Ascorbic Acid [Vitamin C] 500 mg PO DAILY 07/12/22 07/16/22 Biotin 5 mg PO DAILY 07/12/22 07/16/22 Cider Vinegar [Apple Cider Vinegar] 300 mg PO DAILY 07/12/22 07/16/22 Fish Oil/Dha/Epa [Fish Oil 1,200 1 cap PO DAILY 07/12/22 07/16/22 mg Fish Oil] Garlic 1,000 mg PO DAILY 07/12/22 07/16/22 L.acidoph,Paracasei, B.lactis 1 cap PO DAILY 07/12/22 07/16/22 [Probiotic] Levothyroxine Sodium [Synthroid] 125 mcg PO DAILY 07/12/22 07/16/22 Vitamin B Complex 1 cap PO DAILY 07/12/22 07/16/22 Zinc Gluconate [Zinc] 50 mg PO DAILY 07/12/22 07/16/22 metFORMIN HCL [Glucophage] 500 mg PO W/SUPPER 07/12/22 07/16/22 Allergies Allergy/AdvReac Type Severity Reaction Status Date / Time No Known Allergies Allergy Verified 07/16/22 14:08 Review of Systems ROS Statement: Those systems with pertinent positive or pertinent negative responses have been documented in the HPI. ROS Other: All systems not noted in ROS Statement are negative. Past Medical History Past Medical History: CVA/TIA, Diabetes Mellitus, GERD/Reflux, Hypertension, Thyroid Disorder History of Any Multi-Drug Resistant Organisms: None Reported Past Surgical History: Appendectomy, Section, Hysterectomy, Orthopedic Surgery, Tonsillectomy Additional Past Surgical History / Comment(s): x2, d&c, back surgery Past Anesthesia/Blood Transfusion Reactions: Postoperative Nausea & Vomiting (PONV) Past Psychological History: No Psychological Hx Reported Smoking Status: Never smoker Past Alcohol Use History: None Reported Past Drug Use History: None Reported - Past Family History Mother Family Medical History: Cancer Additional Family Medical History / Comment(s): lymphoma Father Family Medical History: Cancer Additional Family Medical History / Comment(s): ling cancer General Exam - General Exam Comments Initial Comments: GENERAL: The patient is well nourished and well hydrated. VITAL SIGNS: Heart rate, blood pressure, respiratory rate reviewed as recorded in nurse's notes. EYES: Pupils are round and reactive. Extraocular movements are intact. No conjunctival / lid redness or swelling. ENT: No external evidence of injury, swelling, or ecchymosis. Airway is patent. Throat is clear. NECK: Nontender. No swelling or evidence of injury. No subcutaneous emphysema. Trachea is midline. No thyroid mass. HEART: Regular rate and rhythm. Good peripheral pulses. LUNGS/CHEST: Breath sounds clear and equal bilaterally. No rales, rhonchi, or wheezes. No ecchymosis, subcutaneous emphysema, or tenderness. ABDOMEN: Abdomen soft without tenderness. No palpable masses or organomegaly. No peritoneal signs. No abdominal wall swelling or ecchymosis. EXTREMITIES: No extremity tenderness. Normal muscle tone and function. No thoracolumbar tenderness. NEUROLOGIC: Sensation is grossly intact. Cranial nerve exam reveals face is symmetrical, tongue is midline, speech is clear. SKIN: No abrasions or ecchymosis is noted. No induration or masses noted. PSYCHIATRIC: Alert and oriented. Appropriate behavior and judgment. Appears anxious at times. Limitations: no limitations Course Vital Signs 07/16/22 07/16/22 07/16/22 12:31 13:25 13:26 Temperature 98.1 F Pulse Rate 93 73 Pulse Rate [ 71 Hand Tube Bender ] Respiratory 18 18 Rate Blood Pressure 140/85 140/84 O2 Sat by Pulse 98 97 Oximetry 07/16/22 07/16/22 07/16/22 14:02 15:00 15:29 Temperature 97.8 F Pulse Rate 67 69 71 Pulse Rate [ Hand Tube Bender ] Respiratory 18 18 17 Rate Blood Pressure 143/87 140/79 140/92 O2 Sat by Pulse 96 99 98 Oximetry 07/16/22 07/16/22 16:12 18:02 Temperature 97.9 F Pulse Rate 69 67 Pulse Rate [ Hand Tube Bender ] Respiratory 18 18 Rate Blood Pressure 143/68 136/95 O2 Sat by Pulse 99 98 Oximetry Medical Decision Making - Medical Decision Making Was pt. sent in by a medical professional or institution (, PA, MALT HOUSE OPERATOR, urgent care, hospital, or fpc...) When possible be specific @ -[No] Did you speak to anyone other than the patient for history (EMS, parent, family, police, friend...)? What history was obtained from this source @ -[No] Did you review nursing and triage notes (agree or disagree)? Why? @ -[I reviewed and agree with nursing and triage notes] Were old charts reviewed (outside hosp., previous admission, EMS record, old EKG, old radiological studies, urgent care reports/EKG's, fpc records)? Report findings @ -Old records were reviewed from recent hospitalization her calcium level apparently was up to 15 at one time. Differential Diagnosis (chest pain, altered mental status, abdominal pain women, abdominal pain men, vaginal bleeding, weakness, fever, dyspnea, syncope, headache, dizziness, GI bleed, back pain, seizure, CVA, palpatations, mental health)? @ -Chest pain, paresthesias, anxiety reaction, electrolyte abnormalities EKG interpreted by me (3pts min.). @ -EKG is interpreted by myself and does show a normal sinus rhythm at a rate of 84. There is no acute ST-T wave changes identified. Slight artifact noted. FL intervals 145, QRS duration is 82, and QTc interval is 397. X-rays interpreted by me (1pt min.). @ -X-rays are ordered by myself and do not show any acute processes. CT interpreted by me (1pt min.). @ -[None done] U/S interpreted by me (1pt. min.). @ -[None done] What testing was considered but not performed or refused? (CT, X-rays, U/S, labs)? Why? @ -[None] What meds were considered but not given or refused? Why? @ -[None] Did you discuss the management of the patient with other professionals (professionals i.e. , PA, MALT HOUSE OPERATOR, lab, RT, psych nurse, medical social worker, grapple yarder operator, teacher, privacy officer, case maker)? Give summary @ -[No] Was smoking cessation discussed for >3mins.? @ -[No] Was critical care preformed (if so, how long)? @ -[No] Were there social determinants of health that impacted care today? How? (Homelessness, low income, unemployed, alcoholism, drug addiction, transportation, low edu. Level, literacy, decrease access to med. care, long term, rehab)? @ -[No] Was there de-escalation of care discussed even if they declined (Discuss DNR or withdrawal of care, Hospice)? DNR status @ -[No] What co-morbidities impacted this encounter? (DM, HTN, Smoking, COPD, CAD, Cancer, CVA, ARF, Chemo, Hep., AIDS, mental health diagnosis, sleep apnea, morbid obesity)? @ -Hypercalcemia Was patient admitted / discharged? Hospital course, mention meds given and rout e, prescriptions, significant lab abnormalities, going to OR and other pertinent info. @ -The patient was seen and examined. All diagnostics were reviewed. It appears as though the calcium has significantly decreased as compared to last several days. The calcium at this time is slightly low. Multiple other liquids are low including a low magnesium at 1.2. This is replaced with 2 g magnesium intravenously. The potassium is low patient receives potassium chloride orally as well. She appears well on recheck. Symptoms have resolved. Is felt as though much of her symptoms likely are related to anxiety and likely a panic attack. It is felt as though she stable for discharge. Dori has an appointment with primary care tomorrow and tubing tester in 2 days. Return p arameters are discussed possible hydrated Undiagnosed new problem with uncertain prognosis? @ -Undiagnosed new problem 9 Drug Therapy requiring intensive monitoring for toxicity (Heparin, Nitro, Insulin, Cardizem)? @ -[No] Were any procedures done? @ -[No] Diagnosis/symptom? @ -Hypomagnesemia, anxiety reaction, hypokalemia, hypocalcemia, and pulled phosphatemia, chest pain Acute, or Chronic, or Acute on Chronic? @ -Acute Uncomplicated (without systemic symptoms) or Complicated (systemic symptoms)? @ -Uncomplicated Side effects of treatment? @ -[No] Exacerbation, Progression, or Severe Exacerbation? @ -Exacerbation Poses a threat to life or bodily function? How? (Chest pain, [place], [place], pneumonia, PE, COPD, DKA, ARF, appy, cholecystitis, CVA, Diverticulitis, Homicidal, [place] icidal, threat to staff... and all critical care pts) @ -[No] - Lab Data Result diagrams: 07/16/22 13:08 07/16/22 13:08 Lab Results 07/16/22 07/16/22 07/16/22 Range/Units 13:08 13:08 13:08 WBC 6.1 (3.8-10.6) k/uL RBC 4.32 (3.80-5.40) m/uL Hgb 11.8 (11.4-16.0) gm/dL Hct 35.0 (34.0-46.0) % MCV 81.2 (80.0-100.0) fL MCH 27.3 (25.0-35.0) pg MCHC 33.7 (31.0-37.0) g/dL RDW 13.9 (11.5-15.5) % Plt Count 146 L (150-450) k/uL MPV 8.2 Neutrophils % 67 % Lymphocytes % 18 % Monocytes % 6 % Eosinophils % 7 % Basophils % 1 % Neutrophils # 4.1 (1.3-7.7) k/uL Lymphocytes # 1.1 (1.0-4.8) k/uL Monocytes # 0.4 (0-1.0) k/uL Eosinophils # 0.4 (0-0.7) k/uL Basophils # 0.0 (0-0.2) k/uL PT 11.1 (9.0-12.0) sec INR 1.1 (<1.2) APTT 25.6 (22.0-30.0) sec Sodium 141 (137-145) mmol/L Potassium 3.3 L (3.5-5.1) mmol/L Chloride 113 H (98-107) mmol/L Carbon Dioxide 21 L (22-30) mmol/L Anion Gap 7 mmol/L BUN 12 (7-17) mg/dL Creatinine 0.69 (0.52-1.04) mg/dL Est GFR (CKD-EPI)AfAm >90 (>60 ml/min/1.73 sqM) Est GFR (CKD-EPI)NonAf 89 (>60 ml/min/1.73 sqM) Glucose 106 H (74-99) mg/dL Calcium 8.3 L (8.4-10.2) mg/dL Phosphorus 1.8 L (2.5-4.5) mg/dL Magnesium 1.2 L (1.6-2.3) mg/dL Total Bilirubin 0.6 (0.2-1.3) mg/dL AST 47 H (14-36) U/L ALT 50 H (4-34) U/L Alkaline Phosphatase 114 (38-126) U/L Troponin I (0.000-0.034) ng/mL Total Protein 6.5 (6.3-8.2) g/dL Albumin 3.6 (3.5-5.0) g/dL 07/16/22 Range/Units 13:08 WBC (3.8-10.6) k/uL RBC (3.80-5.40) m/uL Hgb (11.4-16.0) gm/dL Hct (34.0-46.0) % MCV (80.0-100.0) fL MCH (25.0-35.0) pg MCHC (31.0-37.0) g/dL RDW (11.5-15.5) % Plt Count (150-450) k/uL MPV Neutrophils % % Lymphocytes % % Monocytes % % Eosinophils % % Basophils % % Neutrophils # (1.3-7.7) k/uL Lymphocytes # (1.0-4.8) k/uL Monocytes # (0-1.0) k/uL Eosinophils # (0-0.7) k/uL Basophils # (0-0.2) k/uL PT (9.0-12.0) sec INR (<1.2) APTT (22.0-30.0) sec Sodium (137-145) mmol/L Potassium (3.5-5.1) mmol/L Chloride (98-107) mmol/L Carbon Dioxide (22-30) mmol/L Anion Gap mmol/L BUN (7-17) mg/dL Creatinine (0.52-1.04) mg/dL Est GFR (CKD-EPI)AfAm (>60 ml/min/1.73 sqM) Est GFR (CKD-EPI)NonAf (>60 ml/min/1.73 sqM) Glucose (74-99) mg/dL Calcium (8.4-10.2) mg/dL Phosphorus (2.5-4.5) mg/dL Magnesium (1.6-2.3) mg/dL Total Bilirubin (0.2-1.3) mg/dL AST (14-36) U/L ALT (4-34) U/L Alkaline Phosphatase (38-126) U/L Troponin I <0.012 (0.000-0.034) ng/mL Total Protein (6.3-8.2) g/dL Albumin (3.5-5.0) g/dL Disposition Clinical Impression: Anxiety, Paresthesia, Chest pain, Hypomagnesemia, Hypocalcemia, Hypophosphatemia Disposition: HOME SELF-CARE Condition: Good Instructions (If sedation given, give patient instructions): Chest Pain (ED), Hypokalemia (ED), Hypomagnesemia (ED), Anxiety (ED) Additional Instructions: Please continue your magnesium supplement. Please follow-up with the tubing tester in 2 days as scheduled. Is patient prescribed a controlled substance at d/c from ED?: No Referrals: Yaya Moore MD [Primary Care Provider] - 07/17/22 Time of Disposition: 16:27
[2022-07-16 18:03] VITALS: BP 136/95; PULSE 67; TEMP 97.9
== END 2022-07-16 18:17 | disposition home or self-care (01) ==
LOC: EC 12:28
DX: R20.2 Paresthesia of skin (principal); E83.42 Hypomagnesemia; E83.51 Hypocalcemia; F41.9 Anxiety disorder, unspecified; E83.39 Other disorders of phosphorus metabolism; I10 Essential (primary) hypertension; E11.9 Type 2 diabetes mellitus without complications; K21.9 Gastro-esophageal reflux disease without esophagitis; E03.9 Hypothyroidism, unspecified; Z79.82 Long term (current) use of aspirin; Z79.890 Hormone replacement therapy; Z79.899 Other long term (current) drug therapy
CPT/HCPCS: 36415; 93005; 80053; 83735; 84100; 84484; 85025; 85610; 85730; 71046; 99285; 96365; 96375; 96361 ×5; J2060; J3475

== ENCOUNTER → 2022-07-23 | Outpatient (CLI) | payer MEDICARE ==
[2022-07-23 16:18] LABS: African American GFR (CKD) 86.7 (60.0-200.0); Albumin 4.3 g/dL (3.8-4.9); Albumin/Globulin Ratio 1.62 (1.60-3.17); Anion Gap 16.1 mmol/L (10.00-18.00); BUN/Creat Ratio 15.3 Ratio (12.00-20.00); Blood Urea Nitrogen 12.3 mg/dL (9.0-27.0); Calcium 8.7 mg/dL (8.7-10.3); Globulin 2.6 g/dL (1.6-3.3); Non-African American GFR(CKD) 74.8 (60.0-200.0); Potassium 3.6 mmol/L (3.5-5.5); Total Bilirubin 0.6 mg/dL (0.30-1.20); Total Protein 6.9 g/dL (6.2-8.2)
== END | disposition home or self-care (01) ==
LOC: LABWHC1 07:53
PROVIDERS: ATTEND Internal Medicine Nephrology
DX: E83.52 Hypercalcemia (principal)
CPT/HCPCS: 36415; 80053; 84443

== ENCOUNTER → 2022-10-30 | Outpatient (CLI) | payer MEDICARE ==
[2022-10-30 15:24] LABS: African American GFR (CKD) 104.1 (60.0-200.0); Anion Gap 10.6 mmol/L (10.00-18.00); BUN/Creat Ratio 23.35 Ratio (12.00-20.00); Blood Urea Nitrogen 15.6 mg/dL (9.0-27.0); Calcium 9.5 mg/dL (8.7-10.3); Carbon Dioxide 25.2 mmol/L (20.0-27.5); Non-African American GFR(CKD) 89.8 (60.0-200.0); Potassium 3.7 mmol/L (3.5-5.5)
== END | disposition home or self-care (01) ==
LOC: LABWHC1 10:58
PROVIDERS: ATTEND Internal Medicine Nephrology
DX: E83.52 Hypercalcemia (principal)
CPT/HCPCS: 36415; 80048

== ENCOUNTER 2023-08-12 09:42 | Emergency (ER) | payer MEDICARE ==
[2023-08-12 10:03] VITALS: RESP 18
[2023-08-12] MEDS: MORPHINE SULFATE 2 MG/ML SYRINGE IM STA (10:14)
[2023-08-12] MEDS: ORPHENADRINE 30 MG/ML 2 ML VIAL IM STA (10:17)
--- NOTE | 2023-08-12 10:17 | ED ---
Back Pain HPI - General Chief Complaint: Back Pain/Injury Stated Complaint: Lower back pain Time Seen by Provider: 08/12/23 09:54 Source: patient, RN notes reviewed Limitations: no limitations - History of Present Illness Initial Comments: This is a 68-year-old female who presents to the emergency department for back pain. States that for the last week she has had pain in the right hip/right lower back. Reports problems with chronic hip pain, and believes that this may be a flareup. States that this morning when she got up she had pain starting to radiate up towards the right mid to lower back. Denies any injuries, however she was fairly active yesterday. Pain is worse with movement and to the touch. She took Aleve at home without significant relief in symptoms. Denies any loss of bowel/bladder control or saddle anesthesia. She did have some nausea yesterday, but states that this may have been due to the pain. Denies any radiation of pain into the abdomen. MD Complaint: back pain - Related Data Home Medications Medication Instructions Recorded Confirmed Aspirin [Adult Low Dose Aspirin EC] 81 mg PO DAILY 06/07/17 07/16/22 Cranberry Fruit Extract [Cranberry] 500 mg PO DAILY 06/07/17 07/16/22 Losartan Potassium 50 mg PO DAILY 06/07/17 07/16/22 Magnesium Gluconate [Magonate] 500 mg PO DAILY 06/07/17 07/16/22 Multivit-Min/Iron/Folic/Lutein 1 tab PO DAILY 06/07/17 07/16/22 [Centrum Silver Women Tablet] Omeprazole 20 mg PO DAILY 06/07/17 07/16/22 Vitamin C/Biotin [Hair, Skin and 1 tab PO DAILY 06/07/17 07/16/22 Nails Chew] Albuterol Sulfate [Albuterol 1 puff INHALATION RT-Q4H PRN 07/12/22 07/16/22 Sulfate Hfa] Ascorbic Acid [Vitamin C] 500 mg PO DAILY 07/12/22 07/16/22 Biotin 5 mg PO DAILY 07/12/22 07/16/22 Cider Vinegar [Apple Cider Vinegar] 300 mg PO DAILY 07/12/22 07/16/22 Fish Oil/Dha/Epa [Fish Oil 1,200 1 cap PO DAILY 01/12/23 01/16/23 mg Fish Oil] Garlic 1,000 mg PO DAILY 07/12/22 07/16/22 L.acidoph,Paracasei, B.lactis 1 cap PO DAILY 07/12/22 07/16/22 [Probiotic] Levothyroxine Sodium [Synthroid] 125 mcg PO DAILY 07/12/22 07/16/22 Vitamin B Complex 1 cap PO DAILY 07/12/22 07/16/22 Zinc Gluconate [Zinc] 50 mg PO DAILY 07/12/22 07/16/22 metFORMIN HCL [Glucophage] 500 mg PO W/SUPPER 07/12/22 07/16/22 Previous Rx's Medication Instructions Recorded Ketorolac [Toradol] 10 mg PO Q6HR PRN #15 tab 08/12/23 Lidocaine 5% Patch [Lidoderm 5% 1 patch TOPICAL DAILY PRN #30 patch 08/12/23 Patch] methocarbamoL [Robaxin] 1,500 mg PO TID PRN #30 tab 08/12/23 Allergies Allergy/AdvReac Type Severity Reaction Status Date / Time No Known Allergies Allergy Verified 08/12/23 09:52 Review of Systems ROS Statement: Those systems with pertinent positive or pertinent negative responses have been documented in the HPI. ROS Other: All systems not noted in ROS Statement are negative. Past Medical History Past Medical History: CVA/TIA, Diabetes Mellitus, GERD/Reflux, Hypertension, Sleep Apnea/CPAP/BIPAP, Thyroid Disorder History of Any Multi-Drug Resistant Organisms: None Reported Past Surgical History: Appendectomy, Section, Hysterectomy, Orthopedic Surgery, Tonsillectomy Additional Past Surgical History / Comment(s): x2, d&c, back surgery Past Anesthesia/Blood Transfusion Reactions: Postoperative Nausea & Vomiting (PONV) Past Psychological History: No Psychological Hx Reported Smoking Status: Never smoker Past Alcohol Use History: None Reported Past Drug Use History: None Reported - Past Family History Mother Family Medical History: Cancer Additional Family Medical History / Comment(s): lymphoma Father Family Medical History: Cancer Additional Family Medical History / Comment(s): ling cancer General Exam Limitations: no limitations General appearance: alert, in no apparent distress Head exam: Present: atraumatic, normocephalic, normal inspection Respiratory exam: Present: normal lung sounds bilaterally. Absent: respiratory distress, wheezes, rales, rhonchi, stridor Cardiovascular Exam: Present: regular rate, normal rhythm, normal heart sounds. Absent: systolic murmur, diastolic murmur, rubs, gallop, clicks Extremities exam: Present: tenderness (Right hip) Back exam: Present: tenderness (Right lower back) Neurological exam: Present: alert, oriented X3, CN II-XII intact Psychiatric exam: Present: normal affect, normal mood Skin exam: Present: warm, dry, intact, normal color. Absent: rash Course Vital Signs 08/12/23 08/12/23 09:47 12:19 Temperature 97.9 F 98.0 F Pulse Rate 82 76 Respiratory 18 18 Rate Blood Pressure 189/95 147/80 O2 Sat by Pulse 97 97 Oximetry Medical Decision Making - Medical Decision Making This is a 68-year-old female who presents to the emergency department for back pain. Was pt. sent in by a medical professional or institution? @ -No Did you speak to anyone other than the patient for history? @ -No Did you review nursing and triage notes? @ -Yes, and I agree, it is accurate with regards to the patient's symptoms. Were old charts reviewed? @ -No Differential Diagnosis? @ -Differential Back Pain: Strain, zoster, cauda equina syndrome, epidural abscess, vertebral osteomyelitis, discitis, fracture, subluxation, disc herniation, DJD, spinal stenosis, dissection, AAA, pancreatitis, peptic ulcer disease, pyelonephritis, kidney stone, this is not meant to be an all-inclusive list. EKG interpreted by me (3pts min.)? @ -Not obtained X-rays interpreted by me (1pt min.)? @ -X-ray of the thoracic spine, lumbar spine, and right hip were obtained. My interpretation identifies no acute fractures. CT interpreted by me (1pt min.)? @ -Not obtained U/S interpreted by me (1pt. min.)? @ -Not obtained What testing was considered but not performed? (CT, X-rays, U/S, labs)? Why? @ -None What meds were considered but not given? Why? @ -None Did you discuss the management of the patient with other professionals? @ -No Did you reconcile home meds? @ -No Was smoking cessation discussed for >3mins.? @ -No Was critical care preformed (if so, how long)? @ -No Were there social determinants of health that impacted care today? How? (Homelessness, low income, unemployed, alcoholism, drug addiction, transportation, low edu. Level, literacy, decrease access to med. care, penitentiary, rehab)? @ -No Was there de-escalation of care discussed even if they declined? (Discuss DNR or withdrawal of care, Hospice)? @ -No What co-morbidities impacted this encounter? (DM, HTN, Smoking, COPD, CAD, Cancer, CVA, Hep., AIDS, mental health diagnosis, sleep apnea, morbid obesity)? @ -None Was patient admitted / discharged? @ -Discharged. X-ray of the thoracic spine, lumbar spine, and right hip obtained revealing degenerative changes without any acute process. Urinalysis negative for signs of infection. Symptoms well controlled in the emergency department. Her pain is likely musculoskeletal in nature. Prescription for Toradol, Robaxin, and lidocaine patches provided with dosing instructions reviewed. Patient discharged home in stable condition and advised to have close follow-up with her primary care provider. Undiagnosed new problem with uncertain prognosis? @ -None Drug Therapy requiring intensive monitoring for toxicity (Heparin, Nitro, Insulin, Cardizem)? @ -None Were any procedures done? @ -None Diagnosis/symptom? @ -Lumbar strain Acute, or Chronic, or Acute on Chronic? @ -Acute Uncomplicated (without systemic symptoms) or Complicated (systemic symptoms)? @ -Uncomplicated Side effects of treatment? @ -None Exacerbation, Progression, or Severe Exacerbation] @ -Not applicable Poses a threat to life or bodily function? @ -No Return precautions reviewed in depth, the patient is instructed to return to the emergency department with any new, worsening, or concerning symptoms. Patient verbalized understanding. This case was discussed in detail with the attending ED physician, Dr. Ruiz. Presentation, findings, and treatment plan discussed in detail as well. - Lab Data Lab Results 08/12/23 Range/Units 10:10 Urine Color Yellow Urine Appearance Clear (Clear) Urine pH 6.5 (5.0-8.0) Ur Specific [place] 1.027 (1.001-1.035) Urine Protein 1+ H (Negative) Urine Glucose (UA) Negative (Negative) Urine Ketones Negative (Negative) Urine Blood Negative (Negative) Urine Nitrite Negative (Negative) Urine Bilirubin Negative (Negative) Urine Urobilinogen <2.0 (<2.0) mg/dL Ur Leukocyte Esterase Trace H (Negative) Urine RBC 2 (0-5) /hpf Urine WBC 2 (0-5) /hpf Ur Squamous Epith Cells 1 (0-4) /hpf Urine Mucus Few H (None) /hpf - Radiology Data Radiology results: report reviewed, image reviewed Disposition Clinical Impression: Strain of lumbar region Disposition: HOME SELF-CARE Instructions (If sedation given, give patient instructions): Low Back Strain (ED), Acute Low Back Pain (ED) Additional Instructions: Return to the emergency department with any new, worsening, or concerning symptoms. Take the Toradol with Tylenol as needed for pain relief. If you choose to take the Toradol, do not take any other anti-inflammatories such as ibuprofen, take one or the other. You can take the Robaxin as 1-2 tablets up to 3-4 times daily. Be aware that this may make you drowsy. You can also apply the lidocaine patches daily. Follow up with your primary care provider in 1-2 days. Prescriptions: Lidocaine 5% Patch [Lidoderm 5% Patch] 1 patch TOPICAL DAILY PRN #30 patch PRN Reason: Pain methocarbamoL [Robaxin] 1,500 mg PO TID PRN #30 tab PRN Reason: Pain Ketorolac [Toradol] 10 mg PO Q6HR PRN #15 tab PRN Reason: Pain Is patient prescribed a controlled substance at d/c from ED?: No Referrals: Yaya Moore [Primary Care Provider] - 1-2 days Time of Disposition: 12:10
[2023-08-12] MEDS: KETOROLAC 15 MG/ML 1 ML VIAL IM STA (10:18)
[2023-08-12] MEDS: LIDOCAINE 4% PATCH TOPICAL ONE (10:21)
[2023-08-12 10:44] LABS: Appearance,Urine Clear (Clear); Bilirubin,Urine Negative (Negative); Blood,Urine Negative (Negative); Color,Urine Yellow; Glucose,Urine (UA) Negative (Negative); Ketones,Urine Negative (Negative); Leukocyte Esterase,Urine Trace (Negative); Mucus,Urine Few /hpf; Nitrite,Urine Negative (Negative); PH, Urine 6.5 (5.0-8.0); Protein,Urine 1+ (Negative); RBC,Urine 2 /hpf (0-5); Specific Gravity,Urine 1.027 (1.001-1.035); Squamous Epithelial Cell,Urine 1 /hpf (0-4); Urobilinogen,Urine <2.0 mg/dL (<2.0); WBC,Urine 2 /hpf (0-5)
--- NOTE | 2023-08-12 11:12 | XR ---
EXAMINATION TYPE: XR Hip Complete RT DATE OF EXAM: 08/12/2023 10:49 AM CLINICAL INDICATION:Female, 68 years old with history of Pain; [facility] COMPARISON: None. TECHNIQUE: XR Hip Complete RT; hip was examined in the frontal and lateral projections and a AP pelvi s. FINDINGS: No evidence for acute process, joint dislocation or significant soft tissue swelling. Osteo phyte formation of the superior acetabulum of the hip. IMPRESSION: 1. No evidence for acute process. 2. Mild hip osteoarthrosis.
--- NOTE | 2023-08-12 11:13 | XR ---
EXAMINATION TYPE: XR thoracic spine 2V DATE OF EXAM: 08/12/2023 10:49 AM CLINICAL INDICATION:Female, 68 years old with history of Pain; COMPARISON: None TECHNIQUE: XR thoracic spine 2V views of the spine in Frontal and lateral projections. FINDINGS: No evidence of acute fracture. There is scattered multilevel disk space narrowing without loss of ve rtebral body height. There is normal alignment of the thoracic vertebral bodies. Scattered osteophyte formation along the anterior and lateral aspects of the vertebral bodies. Neural foramen are patent given limitations of this exam. Spinal canal appears patent. IMPRESSION: 1. No acute osseous pathology. 2. Moderate multilevel disc degeneration
--- NOTE | 2023-08-12 11:18 | XR ---
EXAMINATION TYPE: XR lumbar spine 2 or 3V DATE OF EXAM: 08/12/2023 10:49 AM CLINICAL INDICATION:Female, 68 years old with history of Pain; [facility] COMPARISON: None TECHNIQUE: XR lumbar spine 2 or 3V - Frontal, lateral and coned in L5-S1 lateral views of the spine. FINDINGS: No evidence of any acute osseous pathology. No evidence of loss of vertebral body height i s seen. There is normal alignment of the lumbar vertebral bodies. Mild scattered disc space narrowing . Multilevel marginal osteophyte formation throughout the visualized spine. There is facet joint arth ropathy throughout the spine. Fixation hardware L5 3 L4 appears intact. There is no foraminal stenosi s at L4-L5 and L5-S1. IMPRESSION: 1. No acute fracture. 2. Moderate multilevel disc degeneration.
[2023-08-12] MEDS: IBUPROFEN 600 MG STARTER PACK 4 TAB BTL PO STA (12:13)
[2023-08-12] MEDS: traMADol 50 MG STARTER PACK 3 TAB BTL PO STA (12:13)
[2023-08-12] MEDS: DEXAMETHASONE SOD PHOSPHATE 10 MG/ML 1 ML VIAL IM STA (12:13)
[2023-08-12] MEDS: ONDANSETRON 4 MG ODT STARTER PACK 2 TAB BTL PO STA (12:13)
[2023-08-12 12:35] VITALS: BP 147/80; PULSE 76; TEMP 98
== END 2023-08-12 12:20 | disposition home or self-care (01) ==
LOC: EC 09:42
DX: S39.012A Strain of muscle, fascia and tendon of lower back, initial encounter (principal); E11.9 Type 2 diabetes mellitus without complications; I10 Essential (primary) hypertension; G47.30 Sleep apnea, unspecified; E07.9 Disorder of thyroid, unspecified; K21.9 Gastro-esophageal reflux disease without esophagitis; Z79.82 Long term (current) use of aspirin; Z79.890 Hormone replacement therapy; Z79.899 Other long term (current) drug therapy; X58.XXXA Exposure to other specified factors, initial encounter
CPT/HCPCS: 81001; 72070; 72100; 73502; 99284; 96372 ×4; J1100; J2360; J2270; J1885; S0119

== ENCOUNTER → 2023-08-29 | Outpatient (CLI) | payer MEDICARE ==
[2023-08-29 20:59] LABS: Microalbumin Creatinine Ratio <17 mg/g Cr (0-30); Urine Creatinine 71.7 mg/dL (28.0-217.0)
== END | disposition home or self-care (01) ==
LOC: LABWHC1 09:32
PROVIDERS: ATTEND Family Medicine
DX: R74.8 Abnormal levels of other serum enzymes (principal); E11.9 Type 2 diabetes mellitus without complications
CPT/HCPCS: 36415; 82043; 82570; 82977; 83036

== ENCOUNTER → 2023-08-29 | Outpatient (CLI) | payer MEDICARE ==
--- NOTE | 2023-08-29 19:26 | BD ---
EXAMINATION TYPE: Axial Bone Density DATE OF EXAM: 08/29/2023 CLINICAL HISTORY: 68 years old Female. ICD-10 CODE: Z78.0 ASYMPTOMATIC MENOPAUSAL STA Height: 62.2 Weight: 214 FRAX RISK QUESTIONS: Glucocorticoids (More than 3mos): nothing regularly, only for illness, and injections for pain (Ex: prednisone, prednisolone, methylprednisolone, dexamethasone, and hydrocortisone). History of Fracture in Adulthood: yes 3. Menopause before 45: hx in her 40s, partial ....lynn at about 48 5. Chronic liver disease: yes, elevated enzymes, retesting soon RISK FACTORS HISTORY OF: hx of rt tib fib fx, and lt humerus as an adult Surgery to Spine fusion of 3, 4 and 5 of lumbar, 2013 MEDICATIONS: metformin, statin for cholesterol, vit d and calcium, bp meds, Omeprazole, Thyroid Medications: yes, synthroid, for abuot 15 yrs, EXAM MEASUREMENTS: Bone mineral densitometry was performed using the Scaleform System. spinal fusion, l/s not scanned Bone mineral density about the R hip (g/cm2): 0.914 Bone mineral density about the L hip (g/cm2): 0.922 T Score values are as follows: -----R Neck: -1.5 -----L Neck: -1.4 -----R Total: -0.7 -----L Total: -0.7 Z Score values are as follows: -----R Neck: -0.5 -----L Neck: -0.4 -----R Total: 0.0 -----L Total: 0.0 Bone mineral density is her first scan at [facility]. Bone mineral density about the L Wrist (g/cm2): 0.574 T Score values are as follows: -----Dist. R+U: -2.0 -----Prox. R+U: -1.1 -----Radius total: -1.8 Z Score values are as follows: -----Dist. R+U: -0.1 -----Prox. R+U: 0.7 -----Radius total: 0.1 Bone mineral density is her first at [facility]. FRAX%s: The graph provided illustrates a 14.4% chance for a major osteoporotic fx and a 1.9% chance f or the hips probability for fx in 10 years time. IMPRESSION: Osteopenia (T Score between -2.5 and -1). There is slightly increased risk of fracture and the patient may be considered for treatment. Re-Screen 2-5 years. NOTE: T-SCORE=SD OF THE YOUNG ADULT MEAN.
--- NOTE | 2023-08-29 19:44 | MM ---
Reason for Exam: Screening (asymptomatic). Last mammogram was performed 1 year(s) and 1 month(s) ago. Patient History: Menarche at age 13. First Full-Term at age 19. Hysterectomy at age 38. Postmenopausal. Risk Values: Yue 5 year model risk: 1.4%. NCI Lifetime model risk: 4.1%. Prior Study Comparison: 07/17/2021 Bilateral Screening Mammogram, [facility]. 07/23/2022 Bilateral Screening Mammogram, [facility]. Tissue Density: There are scattered fibroglandular densities. Findings: Analyzed By CAD. Chronic nodularity on the left. Bilateral areas of asymmetric density are redemonstrated. However, an asymmetric density laterally in the right breast, middle to posterior depth, is more defined and further evaluation is recommended. Otherwise, no significant change. Overall Assessment: Incomplete: need additional imaging evaluation, BI-RAD 0 Management: Special View Mammogram of the right breast. Diagnostic Breast Ultrasound of the right breast. Additional views to include spot 3-D CC, 3-D CC rolled, and 3-D ML views. Targeted right breast ultrasound if any persisting abnormality. [facility] will attempt to contact patient to return for supplemental views and ultrasound if indicated. Electronically signed and approved by: Santiago Howard M.D. Radiologist
== END | disposition home or self-care (01) ==
LOC: RADMAMWWP 08:08
PROVIDERS: ATTEND Family Medicine
DX: Z12.31 Encounter for screening mammogram for malignant neoplasm of breast (principal); M85.89 Other specified disorders of bone density and structure, multiple sites; Z78.0 Asymptomatic menopausal state
CPT/HCPCS: 77063; 77067; 77080

== ENCOUNTER → 2023-09-04 | Outpatient (CLI) | payer MEDICARE ==
--- NOTE | 2023-09-05 09:45 | MM ---
Reason for Exam: Additional evaluation requested from abnormal screening. Last screening mammogram was performed less than 1 month ago. Patient History: Menarche at age 13. First Full-Term at age 19. Hysterectomy at age 38. Postmenopausal. Risk Values: Yue 5 year model risk: 1.4%. NCI Lifetime model risk: 4.1%. Prior Study Comparison: 07/17/2021 Bilateral Screening Mammogram, [facility]. 07/23/2022 Bilateral Screening Mammogram, [facility]. 08/29/2023 Bilateral MG 3D screening mammo w/cad, [facility]. Tissue Density: Right: The breasts are heterogeneously dense, which may obscure small masses. Findings: Analyzed By CAD. No evidence for mass or distortion. Vascular and punctate calcifications persists. No suspicious clusters seen. Overall Assessment: Benign, BI-RAD 2 Management: Screening Mammogram of both breasts in 1 year. . Results were given to the patient verbally at the time of exam. Patient should continue monthly self-breast exams. A clinical breast exam by your physician is recommended on an annual basis. This exam should not preclude additional follow-up of suspicious palpable abnormalities. Note on Yue scores and lifetime risk: 1. A Yue score greater than 3% is considered moderate risk. If this is the case, consider specialist referral to assess eligibility for a risk reducing agent. 2. If overall lifetime risk for the development of breast cancer is 20% or higher, the patient may qualify for future screening with alternating mammogram and breast MRI. Electronically signed and approved by: Eric Severino M.D. Radiologis
== END | disposition home or self-care (01) ==
LOC: RADMAMWWP 13:28
PROVIDERS: ATTEND Family Medicine
DX: R92.331 Mammographic heterogeneous density, right breast (principal); Z78.0 Asymptomatic menopausal state
CPT/HCPCS: 77065; G0279; 77061

== ENCOUNTER → 2023-09-26 | Outpatient (CLI) | payer MEDICARE ==
[2023-09-26 16:37] LABS: Hepatitis A Antibody IgM Nonreactive (Nonreactive); Hepatitis B Core IgM Nonreactive (Nonreactive); Hepatitis B Surface Antigen Nonreactive (Nonreactive); Hepatitis C IgG Antibody Nonreactive (Nonreactive)
[2023-09-26 17:00] LABS: ALT 22 U/L (8-44); AST 16 U/L (13-35); Albumin 4.5 g/dL (3.8-4.9); Albumin/Globulin Ratio 1.67 Ratio (1.60-3.17); Alkaline Phosphatase 171 U/L (41-126); BUN/Creat Ratio 23.57 Ratio (12.00-20.00); Blood Urea Nitrogen 16.5 mg/dL (9.0-27.0); Calcium 9.3 mg/dL (8.7-10.3); Carbon Dioxide 23.6 mmol/L (21.6-31.8); Chloride 104 mmol/L (96-109); Globulin 2.7 g/dL (1.6-3.3); Glucose 109 mg/dL (70-110); Potassium 4.5 mmol/L (3.5-5.5); Sodium 141 mmol/L (135-145); Total Bilirubin 0.7 mg/dL (0.3-1.2); Total Protein 7.2 g/dL (6.2-8.2)
== END | disposition home or self-care (01) ==
LOC: LABWHC1 10:57
PROVIDERS: ATTEND Internal Medicine Gastroenterology
DX: R74.8 Abnormal levels of other serum enzymes (principal)
CPT/HCPCS: 36415; 80053; 80074; 83516

== ENCOUNTER → 2023-12-02 | Outpatient (CLI) | payer MEDICARE ==
[2023-12-02 16:27] LABS: Appearance,Urine Clear (Clear); Bilirubin,Urine Negative (Negative); Blood,Urine Negative (Negative); Color,Urine Yellow (Yellow); Ketones,Urine Negative (Negative); Nitrite,Urine Negative (Negative); Specific Gravity,Urine 1.011 (1.001-1.030); Urobilinogen,Urine 0.2 E.U./DL
[2023-12-02 16:33] LABS: Bacteria,Urine None Seen (None Seen)
[2023-12-02 16:53] LABS: Basophils # (A) 0.07 X 10*3/uL (0.00-0.10); Basophils % (A) 0.7 %; Eosinophils # (A) 0.44 X 10*3/uL (0.04-0.35); Eosinophils % (A) 4.7 %; HCT 42.9 % (37.2-46.3); HGB 13.7 g/dL (12.0-15.0); Lymphocytes # (A) 2.52 X 10*3/uL (0.90-5.00); Lymphocytes % (A) 26.9 %; MCH 27.4 pg (27.0-32.0); MCHC 31.9 g/dL (32.0-37.0); MCV 85.8 FL (80.0-97.0); Mean Platelet Volume 10.5 FL (9.5-12.2); Monocytes # (A) 0.56 X 10*3/uL (0.20-1.00); NRBC Per 100 WBC 0 X 10*3/uL (0.00-0.01); Neutrophils % (A) 60.7 %; Platelet Count 230 X 10*3/uL (140-440); RDW 14.9 % (11.5-14.5); WBC 9.38 X 10*3/uL (4.50-10.00)
[2023-12-02 17:57] LABS: % Iron Saturation 19.09 (12.00-45.00); ALT 25 U/L (8-44); AST 20 U/L (13-35); Albumin 4.6 g/dL (3.8-4.9); Albumin/Globulin Ratio 1.59 Ratio (1.60-3.17); Alkaline Phosphatase 155 U/L (41-126); BUN/Creat Ratio 19.33 Ratio (12.00-20.00); Blood Urea Nitrogen 17.4 mg/dL (9.0-27.0); Calcium 9.5 mg/dL (8.7-10.3); Carbon Dioxide 21.3 mmol/L (21.6-31.8); Chloride 105 mmol/L (96-109); Globulin 2.9 g/dL (1.6-3.3); Glucose 128 mg/dL (70-110); Iron 63 UG/DL (50-170); Phosphorus 3.5 mg/dL (2.4-5.1); Potassium 4.6 mmol/L (3.5-5.5); Sodium 142 mmol/L (135-145); Total Bilirubin 0.4 mg/dL (0.3-1.2); Total Iron Binding Capacity 330 UG/DL (228-460); Total Protein 7.5 g/dL (6.2-8.2); Uric Acid 6.4 mg/dL (2.9-7.7)
[2023-12-02 19:36] LABS: Microalbumin Creatinine Ratio <18 mg/g Cr (0-30); Urine Creatinine 67.8 mg/dL (28.0-217.0)
== END | disposition home or self-care (01) ==
LOC: LABWHC1 07:54
PROVIDERS: ATTEND Nurse Practitioner Family
DX: E11.9 Type 2 diabetes mellitus without complications (principal); E83.42 Hypomagnesemia; N25.81 Secondary hyperparathyroidism of renal origin; M10.9 Gout, unspecified; N39.0 Urinary tract infection, site not specified; D64.9 Anemia, unspecified; R74.8 Abnormal levels of other serum enzymes; R80.9 Proteinuria, unspecified
CPT/HCPCS: 36415; 80053; 81001; 82043; 82306; 82570; 82728; 83036; 83540; 83550; 83735; 83970; 84100; 84550; 85025

== ENCOUNTER → 2023-12-18 | Outpatient (CLI) | payer MEDICARE ==
[2023-12-18 16:27] LABS: BUN/Creat Ratio 21.88 Ratio (12.00-20.00); Blood Urea Nitrogen 17.5 mg/dL (9.0-27.0); Calcium 9.6 mg/dL (8.7-10.3); Carbon Dioxide 20.6 mmol/L (21.6-31.8); Chloride 104 mmol/L (96-109); Glucose 126 mg/dL (70-110); Potassium 4.5 mmol/L (3.5-5.5); Sodium 139 mmol/L (135-145)
== END | disposition home or self-care (01) ==
LOC: LABWHC1 07:53
PROVIDERS: ATTEND Internal Medicine Nephrology
DX: E83.52 Hypercalcemia (principal)
CPT/HCPCS: 36415; 80048

== ENCOUNTER → 2024-04-06 | Outpatient (CLI) | payer MEDICARE ==
[2024-04-06 11:20] LABS: Basophils # (A) 0.04 X 10*3/uL (0.00-0.10); Basophils % (A) 0.4 %; Eosinophils # (A) 0.41 X 10*3/uL (0.04-0.35); Eosinophils % (A) 4.6 %; HCT 41.8 % (37.2-46.3); HGB 13.2 g/dL (12.0-15.0); Lymphocytes # (A) 2.51 X 10*3/uL (0.90-5.00); Lymphocytes % (A) 28.2 %; MCH 27.2 pg (27.0-32.0); MCHC 31.6 g/dL (32.0-37.0); Mean Platelet Volume 10.6 FL (9.5-12.2); Monocytes # (A) 0.54 X 10*3/uL (0.20-1.00); Monocytes % (A) 6.1 %; NRBC Per 100 WBC 0 X 10*3/uL (0.00-0.01); Neutrophils # (A) 5.35 X 10*3/uL (1.80-7.70); Platelet Count 205 X 10*3/uL (140-440); RBC 4.86 X 10*6/uL (4.10-5.20); RDW 15.1 % (11.5-14.5); WBC 8.91 X 10*3/uL (4.50-10.00)
[2024-04-06 11:28] LABS: ALT 18 U/L (8-44); AST 18 U/L (13-35); Albumin 4.4 g/dL (3.8-4.9); Albumin/Globulin Ratio 1.63 Ratio (1.60-3.17); Alkaline Phosphatase 139 U/L (41-126); BUN/Creat Ratio 20.38 Ratio (12.00-20.00); Blood Urea Nitrogen 16.3 mg/dL (9.0-27.0); Calcium 9.1 mg/dL (8.7-10.3); Chloride 103 mmol/L (96-109); Globulin 2.7 g/dL (1.6-3.3); Glucose 125 mg/dL (70-110); Potassium 4.5 mmol/L (3.5-5.5); Sodium 139 mmol/L (135-145); Total Bilirubin 0.3 mg/dL (0.3-1.2); Total Protein 7.1 g/dL (6.2-8.2)
== END | disposition home or self-care (01) ==
LOC: LABWHC1 07:59
PROVIDERS: ATTEND Internal Medicine Gastroenterology
DX: R74.8 Abnormal levels of other serum enzymes (principal)
CPT/HCPCS: 36415; 80053; 81596; 85025

== ENCOUNTER → 2024-06-03 | Outpatient (CLI) | payer MEDICARE ==
[2024-06-03 15:33] LABS: BUN/Creat Ratio 18.33 Ratio (12.00-20.00); Blood Urea Nitrogen 16.5 mg/dL (9.0-27.0); Carbon Dioxide 24.3 mmol/L (21.6-31.8); Chloride 104 mmol/L (96-109); Glucose 114 mg/dL (70-110); Potassium 4.4 mmol/L (3.5-5.5); Sodium 140 mmol/L (135-145)
[2024-06-03 15:34] LABS: Calcium 9.2 mg/dL (8.7-10.3)
== END | disposition home or self-care (01) ==
LOC: LABWHC1 08:50
PROVIDERS: ATTEND Internal Medicine
DX: E83.52 Hypercalcemia (principal)
CPT/HCPCS: 36415; 80048

== ENCOUNTER → 2024-06-17 | Outpatient (CLI) | payer MEDICARE ==
[2024-06-17 15:58] LABS: BUN/Creat Ratio 16.25 Ratio (12.00-20.00); Calcium 9.1 mg/dL (8.7-10.3); Carbon Dioxide 25.3 mmol/L (21.6-31.8); Chloride 104 mmol/L (96-109); Glucose 108 mg/dL (70-110); Potassium 4.2 mmol/L (3.5-5.5); Sodium 141 mmol/L (135-145)
== END | disposition home or self-care (01) ==
LOC: LABWHC1 08:26
PROVIDERS: ATTEND Internal Medicine
DX: E83.52 Hypercalcemia (principal)
CPT/HCPCS: 36415; 80048

== ENCOUNTER → 2024-07-08 | Outpatient (CLI) | payer MEDICARE ==
[2024-07-08 15:07] LABS: Basophils # (A) 0.06 X 10*3/uL (0.00-0.10); Basophils % (A) 0.6 %; Eosinophils # (A) 0.29 X 10*3/uL (0.04-0.35); Eosinophils % (A) 2.9 %; HGB 13.9 g/dL (12.0-15.0); Lymphocytes # (A) 2.42 X 10*3/uL (0.90-5.00); Lymphocytes % (A) 24.3 %; MCH 27.3 pg (27.0-32.0); MCHC 31.6 g/dL (32.0-37.0); MCV 86.4 FL (80.0-97.0); Mean Platelet Volume 10.3 FL (9.5-12.2); NRBC Per 100 WBC 0 X 10*3/uL (0.00-0.01); Neutrophils # (A) 6.49 X 10*3/uL (1.80-7.70); Neutrophils % (A) 65.4 %; Platelet Count 225 X 10*3/uL (140-440); RBC 5.09 X 10*6/uL (4.10-5.20); RDW 15.4 % (11.5-14.5); WBC 9.94 X 10*3/uL (4.50-10.00)
[2024-07-08 16:02] LABS: ALT 21 U/L (8-44); AST 19 U/L (13-35); Albumin 4.5 g/dL (3.8-4.9); Alkaline Phosphatase 138 U/L (41-126); BUN/Creat Ratio 18.75 Ratio (12.00-20.00); Calcium 9.3 mg/dL (8.7-10.3); Carbon Dioxide 23.1 mmol/L (21.6-31.8); Chloride 102 mmol/L (96-109); Glucose 124 mg/dL (70-110); Potassium 4.4 mmol/L (3.5-5.5); Sodium 138 mmol/L (135-145); Total Bilirubin 0.5 mg/dL (0.3-1.2); Total Protein 7.5 g/dL (6.2-8.2)
== END | disposition home or self-care (01) ==
LOC: LABWHC1 09:22
PROVIDERS: ATTEND Nurse Practitioner Family
DX: R74.8 Abnormal levels of other serum enzymes (principal)
CPT/HCPCS: 36415; 80053; 85025

== ENCOUNTER → 2024-10-19 | Outpatient (CLI) | payer MEDICARE ==
--- NOTE | 2024-10-19 08:22 | MM ---
Reason for Exam: Screening (asymptomatic). Last mammogram was performed 1 year(s) and 2 month(s) ago. Patient History: Menarche at age 13. First Full-Term at age 19. Hysterectomy at age 38. Postmenopausal. Paternal grandmother had breast cancer. Niece had breast cancer at or over age 50. Risk Values: Yue 5 year model risk: 1.4%. NCI Lifetime model risk: 4.0%. Prior Study Comparison: 07/17/2021 Bilateral Screening Mammogram, [facility]. 07/23/2022 Bilateral Screening Mammogram, [facility]. 08/29/2023 Bilateral MG 3D screening mammo w/cad, [facility]. 09/04/2023 Right MG 3D work up w/cad RT, [facility]. Tissue Density: The breasts are heterogeneously dense, which may obscure small masses. Findings: Analyzed By CAD. There is no suspicious group of microcalcifications or new suspicious mass in either breast. Overall Assessment: Benign, BI-RAD 2 Management: Screening Mammogram of both breasts in 1 year. . Patient should continue monthly self-breast exams. A clinical breast exam by your physician is recommended on an annual basis. This exam should not preclude additional follow-up of suspicious palpable abnormalities. Note on Yue scores and lifetime risk: 1. A Yue score greater than 3% is considered moderate risk. If this is the case, consider specialist referral to assess eligibility for a risk reducing agent. 2. If overall lifetime risk for the development of breast cancer is 20% or higher, the patient may qualify for future screening with alternating mammogram and breast MRI. [facility], , 10/19/2024 8:19 AM. Electronically signed and approved by: Eric Severino M.D. Radiologis
== END | disposition home or self-care (01) ==
LOC: RADMAMWWP 07:09
PROVIDERS: ATTEND Family Medicine
DX: Z12.31 Encounter for screening mammogram for malignant neoplasm of breast (principal); R92.333 Mammographic heterogeneous density, bilateral breasts; Z78.0 Asymptomatic menopausal state; Z80.3 Family history of malignant neoplasm of breast
CPT/HCPCS: 77063; 77067

== ENCOUNTER → 2024-12-10 | Outpatient (CLI) | payer MEDICARE ==
[2024-12-10 15:38] LABS: ALT 24 U/L (8-44); AST 20 U/L (13-35); Albumin 4.3 g/dL (3.8-4.9); Albumin/Globulin Ratio 1.59 Ratio (1.60-3.17); Alkaline Phosphatase 118 U/L (41-126); BUN/Creat Ratio 19.38 Ratio (12.00-20.00); Blood Urea Nitrogen 15.5 mg/dL (9.0-27.0); Calcium 9.3 mg/dL (8.7-10.3); Carbon Dioxide 22.4 mmol/L (21.6-31.8); Chloride 105 mmol/L (96-109); Globulin 2.7 g/dL (1.6-3.3); Glucose 123 mg/dL (70-110); Potassium 4.6 mmol/L (3.5-5.5); Sodium 139 mmol/L (135-145); Total Bilirubin 0.4 mg/dL (0.3-1.2)
== END | disposition home or self-care (01) ==
LOC: LABWHC1 08:33
DX: I10 Essential (primary) hypertension (principal); E11.9 Type 2 diabetes mellitus without complications
CPT/HCPCS: 36415; 80053; 83036

== ENCOUNTER → 2024-12-16 | Outpatient (CLI) | payer MEDICARE | END | disposition home or self-care (01) | LOC: LABPAT 08:04 | PROVIDERS: ATTEND Orthopaedic Surgery | DX: Z01.812 Encounter for preprocedural laboratory examination (principal); E11.9 Type 2 diabetes mellitus without complications; G56.01 Carpal tunnel syndrome, right upper limb | CPT/HCPCS: 83036 ==

== ENCOUNTER → 2025-01-04 | Outpatient (CLI) | payer MEDICARE ==
[2025-01-04 10:50] LABS: Basophils # (A) 0.07 X 10*3/uL (0.00-0.10); Basophils % (A) 0.8 %; Eosinophils # (A) 0.43 X 10*3/uL (0.04-0.35); Eosinophils % (A) 4.8 %; HCT 42.0 % (37.2-46.3); HGB 13.4 g/dL (12.0-15.0); Immature Grans, Automated 0.60 %; Lymphocytes # (A) 2.52 X 10*3/uL (0.90-5.00); Lymphocytes % (A) 28.4 %; MCH 28.0 pg (27.0-32.0); MCHC 31.9 g/dL (32.0-37.0); MCV 87.9 FL (80.0-97.0); Monocytes # (A) 0.55 X 10*3/uL (0.20-1.00); Monocytes % (A) 6.2 %; NRBC Per 100 WBC 0 X 10*3/uL (0.00-0.01); Neutrophils # (A) 5.25 X 10*3/uL (1.80-7.70); Neutrophils % (A) 59.2 %; Platelet Count 213 X 10*3/uL (140-440); RBC 4.78 X 10*6/uL (4.10-5.20); RDW 14.6 % (11.5-14.5); WBC 8.87 X 10*3/uL (4.50-10.00)
[2025-01-04 11:06] LABS: ALT 23 U/L (8-44); AST 22 U/L (13-35); Albumin 4.3 g/dL (3.8-4.9); Albumin/Globulin Ratio 1.87 Ratio (1.60-3.17); Alkaline Phosphatase 114 U/L (41-126); Anion Gap 13.40 mmol/L (4.00-12.00); BUN/Creat Ratio 25.62 Ratio (12.00-20.00); Blood Urea Nitrogen 20.5 mg/dL (9.0-27.0); Calcium 9.1 mg/dL (8.7-10.3); Carbon Dioxide 20.6 mmol/L (21.6-31.8); Chloride 104 mmol/L (96-109); Globulin 2.3 g/dL (1.6-3.3); Glucose 115 mg/dL (70-110); Potassium 4.6 mmol/L (3.5-5.5); Sodium 138 mmol/L (135-145); Total Protein 6.6 g/dL (6.2-8.2)
== END | disposition home or self-care (01) ==
LOC: LABWHC1 08:24
PROVIDERS: ATTEND Nurse Practitioner Family
DX: R74.8 Abnormal levels of other serum enzymes (principal)
CPT/HCPCS: 36415; 80053; 85025